=== PATIENT | male | born 1955 | race African-American/Black ===

== ENCOUNTER 2020-02-28 15:24 | Inpatient (IN) | payer OTHER ==
--- OUTSIDE RECORDS SUMMARY | 2020-02-28 15:30 | XMS ---
:[address] [facility] Support Name Relationship Address Phone UE Unavailable Unavailable Unavailable CLIFF SCOTT NIECE [address] [place] [address] cliff dempsey Unavailable Unavailable Unavailable [place], [place] Re-disclosure Warning The records that you are about to access may contain information from federally- assisted alcohol or drug abuse programs. If such information is present, then the following federally mandated warning applies: This information has been disclosed to you from records protected by federal confidentiality rules (42 CFR part 2). The federal rules prohibit you from making any further disclosure of this information unless further disclosure is expressly permitted by the written consent of the person to whom it pertains or as otherwise permitted by 42 CFR part 2. A general authorization for the release of medical or other information is NOT sufficient for this purpose. The Federal rules restrict any use of the information to criminally investigate or prosecute any alcohol or drug abuse patient.The records that you are about to access may contain highly sensitive health information, the redisclosure of which is protected by Article 27-F of the [facility] Public Health law. If you continue you may haveaccess to information: Regarding HIV / AIDS; Provided by facilities licensed or operated by the [facility] Office of Mental Health; or Provided by the [facility] Office for People With Developmental Disabilities. If such information is present, then the following [facility] mandated warning applies: This information has been disclosed to you from confidential records which are protected by state law. State law prohibits you from making any further disclosure of this information without the specific written consent of the person to whom it pertains, or as otherwise permitted by law. Any unauthorized further disclosure in violation of state law may result in a fine or penitentiary sentence or both. A general authorization for the release of medical or other information is NOT sufficient authorization for further disclosure. Encounters Encounter Providers Location Date Indications Data Source(s ) (DentTx) [facility] 04/03/2019 eCW3 ([facility]28 12:00:00 AM [facility] EST - Care) 04/03/2019 12:00:00 AM EST Outpatient [facility] 03/22/2019 eCW3 ([facility] 12:00:00 AM [facility] EST - Care) 03/22/2019 12:00:00 AM EST (DentTx) Dental [facility] 03/20/2019 eCW3 ([facility] 12:00:00 AM [facility] EST - Care) 03/20/2019 12:00:00 AM EST Outpatient [facility] 03/08/2019 eCW3 ([facility] 12:00:00 AM [facility] EDT - Care) 03/08/2019 12:00:00 AM EDT (DentTx) Dental [facility] 03/06/2019 eCW3 ([facility]28 12:00:00 AM [facility] EDT - Care) 03/06/2019 12:00:00 AM EDT Outpatient [facility] 02/22/2019 eCW3 ([facility] 12:00:00 AM [facility] EDT - Care) 02/22/2019 12:00:00 AM EDT (DentTx) Dental [facility] 02/20/2019 eCW3 ([facility] 12:00:00 AM [facility] EDT - Care) 02/20/2019 12:00:00 AM EDT Outpatient [facility] 02/07/2019 eCW3 ([facility] 12:00:00 AM [facility] EDT - Care) 02/07/2019 12:00:00 AM EDT Outpatient [facility] 01/31/2019 eCW3 ([facility] 12:00:00 AM [facility] EDT - Care) 01/31/2019 12:00:00 AM EDT (DentTx) Dental [facility] 01/30/2019 eCW3 ([facility] 12:00:00 AM [facility] EDT - Care) 01/30/2019 12:00:00 AM EDT Outpatient [facility] 01/10/2019 eCW3 ([facility] 12:00:00 AM [facility] EDT - Care) 01/10/2019 12:00:00 AM EDT Immunizations Vaccine Date Status Description Data Source(s) New in 2011. IIV4 02/22/2019 11:08:00 completed eC W3 ([facility]) New in 2011. IIV4 02/22/2019 11:08:00 completed eC W3 ([facility]) New in 2011. IIV4 02/22/2019 11:08:00 completed eC W3 ([facility]) New in 2011. IIV4 02/22/2019 11:08:00 completed eC W3 ([facility]) New in 2011. IIV4 02/22/2019 11:08:00 completed eC W3 ([facility]) New in 2011. IIV4 02/22/2019 11:08:00 completed eC W3 ([facility]) New in 2011. IIV4 02/22/2019 11:08:00 completed eC W3 ([facility]) New in 2011. IIV4 02/22/2019 11:08:00 completed eC W3 ([facility]) New in 2011. IIV4 02/22/2019 11:08:00 completed eC W3 ([facility]) New in 2011. IIV4 02/22/2019 11:08:00 completed eC W3 ([facility]) Medications Medication Brand Start Product Dose Route Administrative Pharmacy [facility] Indications Reaction Description Data Name Date Form Instructions Instructions Source(s) Glucerna - Glucer 03/13/ 300.0 active Glucern a - eCW3 na - 2020 {ml} ([place] 12:00: [place] 00 [facility] EDT Care) Glucerna - Glucer 03/13/ 300.0 active Glucern a - eCW3 na - 2020 {ml} ([place] 12:00: [place] 00 [facility] EDT Care) Glucerna - Glucer 03/13/ 300.0 active Glucern a - eCW3 na - 2020 {ml} ([place] 12:00: [facility] Glucerna - Glucer 03// 300.0 active Glucern a - eCW3 na - 2020 {ml} ([place] 12:[facility]: [facility] 00 [facility] EDT Care) Glucerna - Glucer 03// 300.0 active Glucern a - eCW3 na - 2020 {ml} ([place] 12:[facility]: [facility] 00 [facility] EDT Care) Glucerna - Glucer 03// 300.0 active Glucern a - eCW3 na - 2020 {ml} ([place] 12:00: [facility] 00 [facility] EDT Care) Glucerna - Glucer 03// 300.0 active Glucern a - eCW3 na - 2020 {ml} ([place] 12:00: [facility] 00 [facility] EDT Care) Glucerna - Glucer 03// 300.0 active Glucern a - eCW3 na - 2020 {ml} ([place] 12:00: [facility] 00 [facility] EDT Care) Glucerna - Glucer 03// 300.0 active Glucern a - eCW3 na - 2020 {ml} ([place] 12:00: [facility] 00 [facility] EDT Care) Glucerna - Glucer 03// 300.0 active Glucern a - eCW3 na - 2020 {ml} ([place] 12:00: [facility] 00 [facility] EDT Care) Glucerna - Glucer 03// 300.0 active Glucern a - eCW3 na - 2020 {ml} ([place] 12:00: [facility] 00 [facility] EDT Care) Glucerna - Glucer 03// 300.0 active Glucern a - eCW3 na - 2020 {ml} ([place] 12:00: [facility] 00 [facility] EDT Care) Glucerna - Glucer 03// 300.0 active Glucern a - eCW3 na - 2020 {ml} ([place] 12:00: [facility] 00 [facility] EDT Care) Glucerna - Glucer 03// 300.0 active Glucern a - eCW3 na - 2020 {ml} ([place] 12:00: [facility] 00 [facility] EDT Care) Glucerna - Glucer 03// 300.0 active Glucern a - eCW3 na - 2020 {ml} ([place] 12:00: [facility] 00 [facility] EDT Care) Glucerna - Glucer 03/ 300.0 active Glucern a - eCW3 na - 2020 {ml} ([place] 12:00: [facility] 00 [facility] EDT Care) Glucerna - Glucer 03/ 300.0 active Glucern a - eCW3 na - 2020 {ml} ([place] 12:00: [facility] 00 [facility] EDT Care) Glucerna - Glucer 03/ 300.0 active Glucern a - eCW3 na - 2020 {ml} ([place] 12:00: [facility] 00 [facility] EDT Care) Glucerna - Glucer // 300.0 active Glucern a - eCW3 na - 2020 {ml} ([place] 12:00: [facility] 00 [facility] EDT Care) Glucerna - Glucer 03// 300.0 active Glucern a - eCW3 na - 2020 {ml} ([place] 12:00: [facility] 00 [facility] EDT Care) Glucerna - Glucer 03/ 300.0 active Glucern a - eCW3 na - 2020 {ml} ([place] 12:00: [facility] 00 [facility] EDT Care) Glucerna - Glucer 03// 300.0 active Glucern a - eCW3 na - 2020 {ml} ([place] 12:00: [facility] 00 [facility] EDT Care) Glucerna - Glucer 03/ 300.0 active Glucern a - eCW3 na - 2020 {ml} ([place] 12:00: [facility] 00 [facility] EDT Care) ammonium Ammoni .0 active Ammonium e CW3 lactate 120 um 2020 {appl Lactate 12 % ([place] MG/ML Lactat 12:00: icati [place] Topical e 12 % 00 AM on} Health Cream EST Care) Ammonium Lactate 12 % ammonium Ammoni .0 active Ammonium e CW3 lactate 120 um 2020 {appl Lactate 12 % ([place] MG/ML Lactat 12:00: icati [place] Topical e 12 % 00 AM on} Health Cream EST Care) Ammonium Lactate 12 % ammonium Ammoni .0 active Ammonium e CW3 lactate 120 um 2020 {appl Lactate 12 % ([place] MG/ML Lactat 12:00: icati [place] Topical e 12 % 00 AM on} Health Cream EST Care) Ammonium Lactate 12 % ammonium Ammoni .0 active Ammonium e CW3 lactate 120 um 2020 {appl Lactate 12 % ([place] MG/ML Lactat 12:00: icati [place] Topical e 12 % 00 AM on} Health Cream EST Care) Ammonium Lactate 12 % ammonium Ammoni .0 active Ammonium e CW3 lactate 120 um 2020 {appl Lactate 12 % ([place] MG/ML Lactat 12:00: icati [place] Topical e 12 % 00 AM on} Health Cream EST Care) Ammonium Lactate 12 % ammonium Ammoni .0 active Ammonium e CW3 lactate 120 um 2020 {appl Lactate 12 % ([place] MG/ML Lactat 12:00: icati [place] Topical e 12 % 00 AM on} Health Cream EST Care) Ammonium Lactate 12 % ammonium Ammoni .0 active Ammonium e CW3 lactate 120 um 2020 {appl Lactate 12 % ([place] MG/ML Lactat 12:00: icati [place] Topical e 12 % 00 AM on} Health Cream EST Care) Ammonium Lactate 12 % Ibuprofen Ibupro 05/25/ active Ibuprofen eCW3 400 MG Oral fen 2020 400 MG ([place] [facility] Tablet 400 MG 12:00: [place] 00 AM [facility] EST Care) Ibuprofen Ibupro 05/25/ active Ibuprofen eCW3 400 MG Oral fen 2020 400 MG ([place] [facility] Tablet 400 MG 12:00: [place] 00 AM [facility] EST Care) Ibuprofen Ibupro 05/25/ active Ibuprofen eCW3 400 MG Oral fen 2020 400 MG ([place] [facility] Tablet 400 MG 12:00: [facility] 00 AM [facility] EST Care) Ibuprofen Ibupro 05/25/ active Ibuprofen eCW3 400 MG Oral fen 2020 400 MG ([place] [facility] Tablet 400 MG 12:00: [facility] 00 AM [facility] EST Care) Ibuprofen Ibupro 05/25/ active Ibuprofen eCW3 400 MG Oral fen 2020 400 MG ([place] [facility] Tablet 400 MG 12:00: [facility] 00 AM [facility] EST Care) Ibuprofen Ibupro 05/25/ active Ibuprofen eCW3 400 MG Oral fen 2020 400 MG ([place] [facility] Tablet 400 MG 12:00: [facility] 00 AM [facility] EST Care) Ibuprofen Ibupro 05/25/ active Ibuprofen eCW3 400 MG Oral fen 2020 400 MG ([place] [facility] Tablet 400 MG 12:00: [facility]) Ibuprofen Ibupro 05/25/ active Ibuprofen eCW3 400 MG Oral fen 2020 400 MG ([place] Tablet 400 MG 12:00: [facility]) Ibuprofen Ibupro 05/25/ active Ibuprofen eCW3 400 MG Oral fen 2020 400 MG ([place] Tablet 400 MG 12:00: [facility]) Ibuprofen Ibupro 05/25/ active Ibuprofen eCW3 400 MG Oral fen 2020 400 MG ([place] [facility] Tablet 400 MG 12:00: [facility]) Ibuprofen Ibupro 05/25/ active Ibuprofen eCW3 400 MG Oral fen 2020 400 MG ([place] Tablet 400 MG 12:: [facility]) Ibuprofen Ibupro 05/25/ active Ibuprofen eCW3 400 MG Oral fen 2020 400 MG ([place] [facility] Tablet 400 MG 12:00: [facility]) Ibuprofen Ibupro 05/25/ active Ibuprofen eCW3 400 MG Oral fen 2020 400 MG ([place] Tablet 400 MG 12:: [facility]) Ibuprofen Ibupro 05/25/ active Ibuprofen eCW3 400 MG Oral fen 2020 400 MG ([place] [facility] Tablet 400 MG 12:00: [facility]) Ibuprofen Ibupro 05/25/ active Ibuprofen eCW3 400 MG Oral fen 2020 400 MG ([place] [facility] Tablet 400 MG 12:00: [facility]) Ibuprofen Ibupro 05/25/ active Ibuprofen eCW3 400 MG Oral fen 2020 400 MG ([place] [facility] Tablet 400 MG 12:00: [facility]) Ibuprofen Ibupro 05/25/ active Ibuprofen eCW3 400 MG Oral fen 2020 400 MG ([place] [facility] Tablet 400 MG 12:00: [facility]) Ibuprofen Ibupro 05/25/ active Ibuprofen eCW3 400 MG Oral fen 2020 400 MG ([place] [facility] Tablet 400 MG 12:00: [facility]) Ibuprofen Ibupro 05/25/ active Ibuprofen eCW3 400 MG Oral fen 2020 400 MG ([place] Tablet 400 MG 12:00: [facility]) Ibuprofen Ibupro 05/25/ active Ibuprofen eCW3 400 MG Oral fen 2020 400 MG ([place] [facility] Tablet 400 MG 12:00: [facility] EST Care) Ibuprofen Ibupro 05/25/ active Ibuprofen eCW3 400 MG Oral fen 2020 400 MG ([place] Tablet 400 MG 12:00: [place] 00 AM [facility] EST Care) Ibuprofen Ibupro 05/25/ active Ibuprofen eCW3 400 MG Oral fen 2020 400 MG ([place] Tablet 400 MG 12:00: [facility] 00 AM [facility] EST Care) Ibuprofen Ibupro 05/25/ active Ibuprofen eCW3 400 MG Oral fen 2020 400 MG ([place] [facility] Tablet 400 MG 12:00: [facility] 00 AM [facility] EST Care) 3 ML Lantus 23/ active Lantus eCW3 Insulin SoloSt 2019 SoloStar 100 ([facility] [place] [facility] 100 12:00: UNIT/ML [facility] 100 UNT/ML UNIT/M 00 AM Health Pen L EST Care) Injector [Lantus] Lantus SoloStar 100 UNIT/ML 3 ML Lantus 05/07/ active Lantus eCW3 Insulin SoloSt 2018 SoloStar 100 ([facility] [place] 100 12:00: UNIT/ML [facility] [facility] 100 UNT/ML UNIT/M 00 AM Health Pen L EST Care) Injector [Lantus] Lantus SoloStar 100 UNIT/ML 3 ML Lantus 05/07/ active Lantus eCW3 Insulin SoloSt 2019 SoloStar 100 ([facility] [place] 100 12:00: UNIT/ML [place] [facility] 100 UNT/ML UNIT/M 00 AM Health Pen L EST Care) Injector [Lantus] Lantus SoloStar 100 UNIT/ML 3 ML Lantus 05/07/ active Lantus eCW3 Insulin SoloSt 2018 SoloStar 100 ([facility] [place] 100 12:00: UNIT/ML [place] [facility] 100 UNT/ML UNIT/M 00 AM Health Pen L EST Care) Injector [Lantus] Lantus SoloStar 100 UNIT/ML 3 ML Lantus 05/07/ active Lantus eCW3 Insulin SoloSt 2019 SoloStar 100 ([facility] [place] 100 12:00: UNIT/ML [place] [facility] 100 UNT/ML UNIT/M 00 AM Health Pen L EST Care) Injector [Lantus] Lantus SoloStar 100 UNIT/ML 3 ML Lantus 05/07/ active Lantus eCW3 Insulin SoloSt 2019 SoloStar 100 ([facility] [place] 100 12:00: UNIT/ML [place] [facility] 100 UNT/ML UNIT/M 00 AM Health Pen L EST Care) Injector [Lantus] Lantus SoloStar 100 UNIT/ML 3 ML Lantus 05/07/ active Lantus eCW3 Insulin SoloSt 2019 SoloStar 100 ([facility] [place] 100 12:00: UNIT/ML [place] [facility] 100 UNT/ML UNIT/M 00 AM Health Pen L EST Care) Injector [Lantus] Lantus SoloStar 100 UNIT/ML 3 ML Lantus 05/07/ active Lantus eCW3 Insulin SoloSt 2019 SoloStar 100 ([facility] [place] [facility] 100 12:00: UNIT/ML [place] [facility] 100 UNT/ML UNIT/M 00 AM Health Pen L EST Care) Injector [Lantus] Lantus SoloStar 100 UNIT/ML 3 ML Lantus 05/07/ active Lantus eCW3 Insulin SoloSt 2019 SoloStar 100 ([facility] [place] [facility] 100 12:00: UNIT/ML [place] [facility] 100 UNT/ML UNIT/M 00 AM Health Pen L EST Care) Injector [Lantus] Lantus SoloStar 100 UNIT/ML 3 ML Lantus 05/07/ active Lantus eCW3 Insulin SoloSt 2019 SoloStar 100 ([facility] [place] [facility] 100 12:00: UNIT/ML [facility] [facility] 100 UNT/ML UNIT/M 00 AM Health Pen L EST Care) Injector [Lantus] Lantus SoloStar 100 UNIT/ML 3 ML Lantus 05/07/ active Lantus eCW3 Insulin SoloSt 2019 SoloStar 100 ([facility] [place] [facility] 100 12:00: UNIT/ML [place] [facility] 100 UNT/ML UNIT/M 00 AM Health Pen L EST Care) Injector [Lantus] Lantus SoloStar 100 UNIT/ML 3 ML Lantus 05/07/ active Lantus eCW3 Insulin SoloSt 2019 SoloStar 100 ([facility] [place] [facility] 100 12:00: UNIT/ML [place] [facility] 100 UNT/ML UNIT/M 00 AM Health Pen L EST Care) Injector [Lantus] Lantus SoloStar 100 UNIT/ML 3 ML Lantus 05/07/ active Lantus eCW3 Insulin SoloSt 2019 SoloStar 100 ([facility] [place] [facility] 100 12:00: UNIT/ML [place] [facility] 100 UNT/ML UNIT/M 00 AM Health Pen L EST Care) Injector [Lantus] Lantus SoloStar 100 UNIT/ML 3 ML Lantus 05/07/ active Lantus eCW3 Insulin SoloSt 2019 SoloStar 100 ([facility] [place] [facility] 100 12:00: UNIT/ML [facility] [facility] 100 UNT/ML UNIT/M 00 AM Health Pen L EST Care) Injector [Lantus] Lantus SoloStar 100 UNIT/ML 3 ML Lantus 05/07/ active Lantus eCW3 Insulin SoloSt 2019 SoloStar 100 ([facility] [place] [facility] 100 12:00: UNIT/ML [place] [facility] 100 UNT/ML UNIT/M 00 AM Health Pen L EST Care) Injector [Lantus] Lantus SoloStar 100 UNIT/ML 3 ML Lantus 05/07/ active Lantus eCW3 Insulin SoloSt 2019 SoloStar 100 ([facility] [place] [facility] 100 12:00: UNIT/ML [place] [facility] 100 UNT/ML UNIT/M 00 AM Health Pen L EST Care) Injector [Lantus] Lantus SoloStar 100 UNIT/ML 3 ML Lantus 05/07/ active Lantus eCW3 Insulin SoloSt 2019 SoloStar 100 ([facility] [place] [facility] 100 12:00: UNIT/ML [place] [facility] 100 UNT/ML UNIT/M 00 AM Health Pen L EST Care) Injector [Lantus] Lantus SoloStar 100 UNIT/ML 3 ML Lantus 05/07/ active Lantus eCW3 Insulin SoloSt 2019 SoloStar 100 ([facility] [place] 100 12:00: UNIT/ML [place] [facility] 100 UNT/ML UNIT/M 00 AM Health Pen L EST Care) Injector [Lantus] Lantus SoloStar 100 UNIT/ML 3 ML Lantus 05/07/ active Lantus eCW3 Insulin SoloSt 2019 SoloStar 100 ([facility] [place] [facility] 100 12:00: UNIT/ML [place] [facility] 100 UNT/ML UNIT/M 00 AM Health Pen L EST Care) Injector [Lantus] Lantus SoloStar 100 UNIT/ML 3 ML Lantus 05/07/ active Lantus eCW3 Insulin SoloSt 2019 SoloStar 100 ([facility] [place] [facility] 100 12:00: UNIT/ML [place] [facility] 100 UNT/ML UNIT/M 00 AM Health Pen L EST Care) Injector [Lantus] Lantus SoloStar 100 UNIT/ML 3 ML Lantus 05/07/ active Lantus eCW3 Insulin SoloSt 2019 SoloStar 100 ([facility] [place] [facility] 100 12:00: UNIT/ML [place] [facility] 100 UNT/ML UNIT/M 00 AM Health Pen L EST Care) Injector [Lantus] Lantus SoloStar 100 UNIT/ML 3 ML Lantus 05/07/ active Lantus eCW3 Insulin SoloSt 2018 SoloStar 100 ([facility] [place] [facility] 100 12:00: UNIT/ML [place] [facility] 100 UNT/ML UNIT/M 00 AM Health Pen L EST Care) Injector [Lantus] Lantus SoloStar 100 UNIT/ML 3 ML Lantus 05/07/ active Lantus eCW3 Insulin SoloSt 2018 SoloStar 100 ([facility] [place] [facility] 100 12:00: UNIT/ML [facility] [facility] 100 UNT/ML UNIT/M 00 AM Health Pen L EST Care) Injector [Lantus] Lantus SoloStar 100 UNIT/ML SYMTUZA SYMTUZ .0 active SYMTUZA eCW 3 800-150-200 A 2018 {tabl [phone]- ([place] -10 MG 800-15 12:00: et_wi 10 MG [place] 0-200- 00 AM th_fo Health 10 MG EST od} Care) SYMTUZA SYMTUZ .0 active SYMTUZA eCW 3 800-150-200 A 2018 {tabl [phone]- ([place] -10 MG 800-15 12:00: et_wi 10 MG [place] 0-200- 00 AM th_fo Health 10 MG EST od} Care) SYMTUZA SYMTUZ .0 active SYMTUZA eCW 3 800-150-200 A 2019 {tabl [phone]- ([place] -10 MG 800-15 12:00: et_wi 10 MG [place] 0-200- 00 AM th_fo Health 10 MG EST od} Care) SYMTUZA SYMTUZ .0 active SYMTUZA eCW 3 800-150-200 A 2019 {tabl [phone]- ([place] -10 MG 800-15 12:00: et_wi 10 MG [place] 0-200- 00 AM th_fo Health 10 MG EST od} Care) SYMTUZA SYMTUZ .0 active SYMTUZA eCW 3 800-150-200 A 2019 {tabl [phone]- ([place] -10 MG 800-15 12:00: et_wi 10 MG [place] 0-200- 00 AM th_fo Health 10 MG EST od} Care) SYMTUZA SYMTUZ .0 active SYMTUZA eCW 3 800-150-200 A 2019 {tabl [phone]- ([place] -10 MG 800-15 12:00: et_wi 10 MG [place] 0-200- 00 AM th_fo Health 10 MG EST od} Care) SYMTUZA SYMTUZ .0 active SYMTUZA eCW 3 800-150-200 A 2019 {tabl [phone]- ([place] -10 MG 800-15 12:00: et_wi 10 MG [place] 0-200- 00 AM th_fo Health 10 MG EST od} Care) SYMTUZA SYMTUZ .0 active SYMTUZA eCW 3 800-150-200 A 2019 {tabl [phone]- ([place] -10 MG 800-15 12:00: et_wi 10 MG [place] 0-200- 00 AM th_fo Health 10 MG EST od} Care) SYMTUZA SYMTUZ .0 active SYMTUZA eCW 3 800-150-200 A 2019 {tabl [phone]- ([place] -10 MG 800-15 12:00: et_wi 10 MG [place] 0-200- 00 AM th_fo Health 10 MG EST od} Care) SYMTUZA SYMTUZ .0 active SYMTUZA eCW 3 800-150-200 A 2019 {tabl [phone]- ([place] -10 MG 800-15 12:00: et_wi 10 MG [place] 0-200- 00 AM th_fo Health 10 MG EST od} Care) SYMTUZA SYMTUZ .0 active SYMTUZA eCW 3 800-150-200 A 2019 {tabl [phone]- ([place] -10 MG 800-15 12:00: et_wi 10 MG [place] 0-200- 00 AM th_fo Health 10 MG EST od} Care) SYMTUZA SYMTUZ .0 active SYMTUZA eCW 3 800-150-200 A 2019 {tabl [phone]- ([place] -10 MG 800-15 12:00: et_wi 10 MG [place] 0-200- 00 AM th_fo Health 10 MG EST od} Care) SYMTUZA SYMTUZ .0 active SYMTUZA eCW 3 800-150-200 A 2019 {tabl [phone]- ([place] -10 MG 800-15 12:00: et_wi 10 MG [place] 0-200- 00 AM th_fo Health 10 MG EST od} Care) SYMTUZA SYMTUZ .0 active SYMTUZA eCW 3 800-150-200 A 2019 {tabl [phone]- ([place] -10 MG 800-15 12:00: et_wi 10 MG [place] 0-200- 00 AM th_fo Health 10 MG EST od} Care) SYMTUZA SYMTUZ .0 active SYMTUZA eCW 3 800-150-200 A 2019 {tabl [phone]- ([place] -10 MG 800-15 12:00: et_wi 10 MG [place] 0-200- 00 AM th_fo Health 10 MG EST od} Care) SYMTUZA SYMTUZ .0 active SYMTUZA eCW 3 800-150-200 A 2019 {tabl [phone]- ([place] -10 MG 800-15 12:00: et_wi 10 MG [place] 0-200- 00 AM th_fo Health 10 MG EST od} Care) SYMTUZA SYMTUZ .0 active SYMTUZA eCW 3 800-150-200 A 2019 {tabl [phone]- ([place] -10 MG 800-15 12:00: et_wi 10 MG [place] 0-200- 00 AM th_fo Health 10 MG EST od} Care) SYMTUZA SYMTUZ .0 active SYMTUZA eCW 3 800-150-200 A 2019 {tabl [phone]- ([place] -10 MG 800-15 12:00: et_wi 10 MG [place] 0-200- 00 AM th_fo Health 10 MG EST od} Care) SYMTUZA SYMTUZ .0 active SYMTUZA eCW 3 800-150-200 A 2019 {tabl [phone]- ([place] -10 MG 800-15 12:00: et_wi 10 MG [place] 0-200- 00 AM th_fo Health 10 MG EST od} Care) SYMTUZA SYMTUZ .0 active SYMTUZA eCW 3 800-150-200 A 2019 {tabl [phone]- ([place] -10 MG 800-15 12:00: et_wi 10 MG [place] 0-200- 00 AM th_fo Health 10 MG EST od} Care) SYMTUZA SYMTUZ .0 active SYMTUZA eCW 3 800-150-200 A 2019 {tabl [phone]- ([place] -10 MG 800-15 12:00: et_wi 10 MG [place] 0-200- 00 AM th_fo Health 10 MG EST od} Care) SYMTUZA SYMTUZ .0 active SYMTUZA eCW 3 800-150-200 A 2019 {tabl [phone]- ([place] -10 MG 800-15 12:00: et_wi 10 MG [place] 0-200- 00 AM th_fo Health 10 MG EST od} Care) SYMTUZA SYMTUZ .0 active SYMTUZA eCW 3 800-150-200 A 2019 {tabl [phone]- ([place] -10 MG 800-15 12:00: et_wi 10 MG [place] 0-200- 00 AM th_ Health 10 MG EST od} Care) Aspirin 81 Aspiri .0 active Aspirin 81 eCW3 MG Delayed n 81 2019 {tabl 81 MG ([place] Release 81 MG 12:00: et} [place] Oral Tablet 00 AM Health Aspirin 81 EDT Care) 81 MG Aspirin 81 Aspiri .0 active Aspirin 81 eCW3 MG Delayed n 81 2019 {tabl 81 MG ([place] Release 81 MG 12:00: et} [facility] Oral Tablet 00 AM Health Aspirin 81 EDT Care) 81 MG Aspirin 81 Aspiri .0 active Aspirin 81 eCW3 MG Delayed n 81 2019 {tabl 81 MG ([place] Release 81 MG 12:00: et} [facility] Oral Tablet 00 AM Health Aspirin 81 EDT Care) 81 MG Aspirin 81 i .0 active Aspirin 81 eCW3 MG Delayed n 81 2019 {tabl 81 MG ([place] Release 81 MG 12:00: et} [place] Oral Tablet 00 AM Health Aspirin 81 EDT Care) 81 MG Aspirin 81 i .0 active Aspirin 81 eCW3 MG Delayed n 81 2019 {tabl 81 MG ([place] Release 81 MG 12:00: et} [place] Oral Tablet 00 AM Health Aspirin 81 EDT Care) 81 MG Aspirin 81 Aspiri .0 active Aspirin 81 eCW3 MG Delayed n 81 2019 {tabl 81 MG ([place] Release 81 MG 12:00: et} [facility] Oral Tablet 00 AM Health Aspirin 81 EDT Care) 81 MG Aspirin 81 Aspiri .0 active Aspirin 81 eCW3 MG Delayed n 81 2019 {tabl 81 MG ([place] Release 81 MG 12:00: et} [facility] Oral Tablet 00 AM Health Aspirin 81 EDT Care) 81 MG Aspirin 81 Aspiri .0 active Aspirin 81 eCW3 MG Delayed n 81 2019 {tabl 81 MG ([place] Release 81 MG 12:00: et} [facility] Oral Tablet 00 AM Health Aspirin 81 EDT Care) 81 MG Aspirin 81 Aspiri .0 active Aspirin 81 eCW3 MG Delayed n 81 2019 {tabl 81 MG ([place] Release 81 MG 12:00: et} [facility] Oral Tablet 00 AM Health Aspirin 81 EDT Care) 81 MG Aspirin 81 Aspiri .0 active Aspirin 81 eCW3 MG Delayed n 81 2019 {tabl 81 MG ([place] Release 81 MG 12:00: et} [facility] Oral Tablet 00 AM Health Aspirin 81 EDT Care) 81 MG Aspirin 81 Aspiri .0 active Aspirin 81 eCW3 MG Delayed n 81 2019 {tabl 81 MG ([place] Release 81 MG 12:00: et} [facility] Oral Tablet 00 AM Health Aspirin 81 EDT Care) 81 MG Aspirin 81 Aspiri .0 active Aspirin 81 eCW3 MG Delayed n 81 2019 {tabl 81 MG ([place] Release 81 MG 12:00: et} [facility] Oral Tablet 00 AM Health Aspirin 81 EDT Care) 81 MG Aspirin 81 Aspiri .0 active Aspirin 81 eCW3 MG Delayed n 81 2019 {tabl 81 MG ([place] Release 81 MG 12:00: et} [facility] Tablet 00 AM Health Aspirin 81 EDT Care) 81 MG Aspirin 81 Aspiri .0 active Aspirin 81 eCW3 MG Delayed n 81 2019 {tabl 81 MG ([place] Release 81 MG 12:00: et} [facility] Tablet 00 AM Health Aspirin 81 EDT Care) 81 MG Aspirin 81 Aspiri .0 active Aspirin 81 eCW3 MG Delayed n 81 2019 {tabl 81 MG ([place] Release 81 MG 12:00: et} [facility] Tablet 00 AM Health Aspirin 81 EDT Care) 81 MG Aspirin 81 Aspiri .0 active Aspirin 81 eCW3 MG Delayed n 81 2019 {tabl 81 MG ([place] Release 81 MG 12:00: et} [facility] Tablet 00 AM Health Aspirin 81 EDT Care) 81 MG Aspirin 81 Aspiri .0 active Aspirin 81 eCW3 MG Delayed n 81 2019 {tabl 81 MG ([place] Release 81 MG 12:00: et} [facility] Tablet 00 [facility] Aspirin 81 EDT Care) 81 MG Aspirin 81 Aspiri .0 active Aspirin 81 eCW3 MG Delayed n 81 2019 {tabl 81 MG ([place] Release 81 MG 12:00: et} [facility] Oral Tablet 00 AM [facility] Aspirin 81 EDT Care) 81 MG Glucerna - Glucer 300.0 active Glucern a - eCW3 na - 2019 {ml} ([place] 12:00: [facility] 00 AM [facility] EDT Care) Aspirin 81 Aspiri .0 active Aspirin 81 eCW3 MG Delayed n 81 2019 {tabl 81 MG ([place] Release 81 MG 12:00: et} [facility] Oral Tablet 00 AM [facility] Aspirin 81 EDT Care) 81 MG Aspirin 81 Aspiri .0 active Aspirin 81 eCW3 MG Delayed n 81 2019 {tabl 81 MG ([place] Release 81 MG 12:00: et} [facility] Oral Tablet 00 AM [facility] Aspirin 81 EDT Care) 81 MG Aspirin 81 Aspiri .0 active Aspirin 81 eCW3 MG Delayed n 81 2019 {tabl 81 MG ([place] Release 81 MG 12:00: et} [facility] Oral Tablet 00 AM [facility] Aspirin 81 EDT Care) 81 MG Aspirin 81 Aspiri .0 active Aspirin 81 eCW3 MG Delayed n 81 2019 {tabl 81 MG ([place] Release 81 MG 12:00: et} [facility] Oral Tablet 00 AM [facility] Aspirin 81 EDT Care) 81 MG Aspirin 81 Aspiri .0 active Aspirin 81 eCW3 MG Delayed n 81 2019 {tabl 81 MG ([place] Release 81 MG 12:00: et} [facility] Oral Tablet 00 AM [facility] Aspirin 81 EDT Care) 81 MG Aspirin 81 Aspiri .0 active Aspirin 81 eCW3 MG Delayed n 81 2019 {tabl 81 MG ([place] Release 81 MG 12:00: et} [facility] Oral Tablet 00 AM [facility] Aspirin 81 EDT Care) 81 MG Sulfamethox Bactri .0 active Bactrim DS eCW3 azole 800 m DS 2019 {tabl 800-160 MG ([facility] MG / 800-16 12:00: et} [facility] Trimethopri 0 MG 00 AM [facility] m 160 MG EDT Care) Oral Tablet [Bactrim] Bactrim DS 800-160 MG Sulfamethox Bactri .0 active Bactrim DS eCW3 azole 800 m DS 2019 {tabl 800-160 MG ([facility] MG / 800-16 12:00: et} [facility] Trimethopri 0 MG 00 AM Health m 160 MG EDT Care) Oral Tablet [Bactrim] Bactrim DS 800-160 MG Sulfamethox Bactri .0 active Bactrim DS eCW3 azole 800 m DS 2019 {tabl 800-160 MG ([facility] MG / 800-16 12:00: et} [facility] Trimethopri 0 MG 00 AM [facility] m 160 MG EDT Care) Oral Tablet [Bactrim] Bactrim DS 800-160 MG Sulfamethox Bactri .0 active Bactrim DS eCW3 azole 800 m DS 2019 {tabl 800-160 MG ([facility] MG / 800-16 12:00: et} [facility] Trimethopri 0 MG 00 AM Health m 160 MG EDT Care) Oral Tablet [Bactrim] Bactrim DS 800-160 MG Sulfamethox Bactri .0 active Bactrim DS eCW3 azole 800 m DS 2019 {tabl 800-160 MG ([facility] MG / 800-16 12:00: et} [facility] Trimethopri 0 MG 00 AM [facility] m 160 MG EDT Care) Oral Tablet [Bactrim] Bactrim DS 800-160 MG Sulfamethox Bactri .0 active Bactrim DS eCW3 azole 800 m DS 2019 {tabl 800-160 MG ([facility] MG / 800-16 12:00: et} [facility] Trimethopri 0 MG 00 AM [facility] m 160 MG EDT Care) Oral Tablet [Bactrim] Bactrim DS 800-160 MG Sulfamethox Bactri .0 active Bactrim DS eCW3 azole 800 m DS 2019 {tabl 800-160 MG ([facility] MG / 800-16 12:00: et} [facility] Trimethopri 0 MG 00 AM [facility] m 160 MG EDT Care) Oral Tablet [Bactrim] Bactrim DS 800-160 MG Sulfamethox Bactri .0 active Bactrim DS eCW3 azole 800 m DS 2019 {tabl 800-160 MG ([facility] MG / 800-16 12:00: et} [facility] Trimethopri 0 MG 00 AM [facility] m 160 MG EDT Care) Oral Tablet [Bactrim] Bactrim DS 800-160 MG Sulfamethox Bactri 1.0 active Bactrim DS eCW3 azole 800 m DS 2019 {tabl 800-160 MG ([facility] MG / 800-16 12:00: et} [facility] Trimethopri 0 MG 00 AM [facility] m 160 MG EDT Care) Oral Tablet [Bactrim] Bactrim DS 800-160 MG Sulfamethox Bactri .0 active Bactrim DS eCW3 azole 800 m DS 2019 {tabl 800-160 MG ([facility] MG / 800-16 12:00: et} [facility] Trimethopri 0 MG 00 AM [facility] m 160 MG EDT Care) Oral Tablet [Bactrim] Bactrim DS 800-160 MG Sulfamethox Bactri .0 active Bactrim DS eCW3 azole 800 m DS 2019 {tabl 800-160 MG ([facility] MG / 800-16 12:00: et} [facility] Trimethopri 0 MG 00 AM [facility] m 160 MG EDT Care) Oral Tablet [Bactrim] Bactrim DS 800-160 MG Sulfamethox Bactri .0 active Bactrim DS eCW3 azole 800 m DS 2019 {tabl 800-160 MG ([facility] MG / 800-16 12:00: et} [facility] Trimethopri 0 MG 00 AM [facility] m 160 MG EDT Care) Oral Tablet [Bactrim] Bactrim DS 800-160 MG Sulfamethox Bactri .0 active Bactrim DS eCW3 azole 800 m DS 2019 {tabl 800-160 MG ([facility] MG / 800-16 12:00: et} [facility] Trimethopri 0 MG 00 AM [facility] m 160 MG EDT Care) Oral Tablet [Bactrim] Bactrim DS 800-160 MG Sulfamethox Bactri .0 active Bactrim DS eCW3 azole 800 m DS 2019 {tabl 800-160 MG ([facility] MG / 800-16 12:00: et} [facility] Trimethopri 0 MG 00 AM [facility] m 160 MG EDT Care) Oral Tablet [Bactrim] Bactrim DS 800-160 MG Sulfamethox Bactri .0 active Bactrim DS eCW3 azole 800 m DS 2019 {tabl 800-160 MG ([facility] MG / 800-16 12:00: et} [facility] Trimethopri 0 MG 00 AM [facility] m 160 MG EDT Care) Oral Tablet [Bactrim] Bactrim DS 800-160 MG Sulfamethox Bactri .0 active Bactrim DS eCW3 azole 800 m DS 2019 {tabl 800-160 MG ([facility] MG / 800-16 12:00: et} [facility] Trimethopri 0 MG 00 AM [facility] m 160 MG EDT Care) Oral Tablet [Bactrim] Bactrim DS 800-160 MG Sulfamethox Bactri .0 active Bactrim DS eCW3 azole 800 m DS 2019 {tabl 800-160 MG ([facility] MG / 800-16 12:00: et} [facility] Trimethopri 0 MG 00 AM [facility] m 160 MG EDT Care) Oral Tablet [Bactrim] Bactrim DS 800-160 MG Sulfamethox Bactri .0 active Bactrim DS eCW3 azole 800 m DS 2019 {tabl 800-160 MG ([facility] MG / 800-16 12:00: et} [facility] Trimethopri 0 MG 00 AM [facility] m 160 MG EDT Care) Oral Tablet [Bactrim] Bactrim DS 800-160 MG Sulfamethox Bactri .0 active Bactrim DS eCW3 azole 800 m DS 2019 {tabl 800-160 MG ([facility] MG / 800-16 12:00: et} [facility] Trimethopri 0 MG 00 AM [facility] m 160 MG EDT Care) Oral Tablet [Bactrim] Bactrim DS 800-160 MG Sulfamethox Bactri .0 active Bactrim DS eCW3 azole 800 m DS 2019 {tabl 800-160 MG ([facility] MG / 800-16 12:00: et} [facility] Trimethopri 0 MG 00 AM [facility] m 160 MG EDT Care) Oral Tablet [Bactrim] Bactrim DS 800-160 MG Sulfamethox Bactri .0 active Bactrim DS eCW3 azole 800 m DS 2019 {tabl 800-160 MG ([facility] MG / 800-16 12:00: et} [facility] Trimethopri 0 MG 00 AM [facility] m 160 MG EDT Care) Oral Tablet [Bactrim] Bactrim DS 800-160 MG Sulfamethox Bactri 1.0 active Bactrim DS eCW3 azole 800 m DS 2019 {tabl 800-160 MG ([facility] MG / 800-16 12:00: et} [facility] Trimethopri 0 MG 00 AM [facility] m 160 MG EDT Care) Oral Tablet [Bactrim] Bactrim DS 800-160 MG Sulfamethox Bactri 1.0 active Bactrim DS eCW3 azole 800 m DS 2019 {tabl 800-160 MG ([facility] MG / 800-16 12:00: et} [facility] Trimethopri 0 MG 00 AM [facility] m 160 MG EDT Care) Oral Tablet [Bactrim] Bactrim DS 800-160 MG Sulfamethox Bactri .0 active Bactrim DS eCW3 azole 800 m DS 2019 {tabl 800-160 MG ([facility] MG / 800-16 12:00: et} [facility] Trimethopri 0 MG 00 AM [facility] m 160 MG EDT Care) Oral Tablet [Bactrim] Bactrim DS 800-160 MG GLUCOMETER UNK 02/01/ suspend GLUCOMETE R eCW3 NA 2019 ed NA ([facility] 12:00: [facility] 00 AM [facility] EDT Care) GLUCOMETER UNK 02/01/ active GLUCOMETER eCW3 NA 2018 NA ([place] 12:00: [facility] 00 AM [facility] EDT Care) GLUCOMETER UNK 02/01/ suspend GLUCOMETE R eCW3 NA 2019 ed NA ([place] 12:00: [facility] 00 AM [facility] EDT Care) GLUCOMETER UNK 02/01/ active GLUCOMETER eCW3 NA 2018 NA ([place] 12:00: [facility] 00 AM [facility] EDT Care) GLUCOMETER UNK 02/01/ active GLUCOMETER eCW3 NA 2018 NA ([place] 12:00: [facility] 00 AM [facility] EDT Care) GLUCOMETER UNK 02/01/ active GLUCOMETER eCW3 NA 2018 NA ([place] 12:00: [facility] 00 AM [facility] EDT Care) GLUCOMETER UNK 02/01/ active GLUCOMETER eCW3 NA 2018 NA ([place] 12:00: [facility] 00 AM [facility] EDT Care) GLUCOMETER UNK 02/01/ active GLUCOMETER eCW3 NA 2019 NA ([place] 12:00: [facility] 00 AM [facility] EDT Care) GLUCOMETER UNK 02/01/ active GLUCOMETER eCW3 NA 2019 NA ([place] 12:00: [facility] 00 AM [facility] EDT Care) GLUCOMETER UNK 02/01/ active GLUCOMETER eCW3 NA 2019 NA ([place] 12:00: [facility] 00 AM [facility] EDT Care) GLUCOMETER UNK 02/01/ active GLUCOMETER eCW3 NA 2019 NA ([place] 12:00: [facility] 00 AM [facility] EDT Care) GLUCOMETER UNK 02/01/ active GLUCOMETER eCW3 NA 2019 NA ([place] 12:00: [facility] 00 AM [facility] EDT Care) GLUCOMETER UNK 02/01/ suspend GLUCOMETE R eCW3 NA 2019 ed NA ([place] 12:00: [facility] 00 AM [facility] EDT Care) GLUCOMETER UNK 02/01/ active GLUCOMETER eCW3 NA 2019 NA ([place] 12:00: [facility] 00 AM [facility] EDT Care) GLUCOMETER UNK 02/01/ active GLUCOMETER eCW3 NA 2019 NA ([place] 12:00: [facility] 00 AM [facility] EDT Care) GLUCOMETER UNK 02/01/ active GLUCOMETER eCW3 NA 2019 NA ([place] 12:00: [facility] 00 AM [facility] EDT Care) GLUCOMETER UNK 02/01/ active GLUCOMETER eCW3 NA 2019 NA ([place] 12:00: [facility] 00 AM [facility] EDT Care) GLUCOMETER UNK 02/01/ active GLUCOMETER eCW3 NA 2019 NA ([place] 12:00: [facility] 00 AM [facility] EDT Care) GLUCOMETER UNK 02/01/ active GLUCOMETER eCW3 NA 2019 NA ([place] 12:00: [facility] 00 AM [facility] EDT Care) GLUCOMETER UNK 02/01/ suspend GLUCOMETE R eCW3 NA 2019 ed NA ([place] 12:00: [facility] 00 AM [facility] EDT Care) GLUCOMETER UNK 02/01/ active GLUCOMETER eCW3 NA 2019 NA ([place] 12:00: [facility] 00 AM [facility] EDT Care) GLUCOMETER UNK 02/01/ active GLUCOMETER eCW3 NA 2019 NA ([place] 12:00: [facility] 00 AM [facility] EDT Care) GLUCOMETER UNK 02/01/ active GLUCOMETER eCW3 NA 2019 NA ([place] 12:00: [facility] 00 AM [facility] EDT Care) GLUCOMETER UNK 02/01/ active GLUCOMETER eCW3 NA 2019 NA ([place] 12:00: [facility] 00 AM [facility] EDT Care) Accu-Chek UNK 01/31/ active Accu-Chek e CW3 Soft Touch 2019 Soft Touch ([facility] Lancets - 12:00: Lancets - [place] 00 AM [facility] EDT Care) Alcohol UNK 01/31/ active Alcohol Prep eCW3 Prep Pads 2019 Pads 70 % ([place] 70 % 12:00: [facility] 00 AM [facility] EDT Care) Alcohol UNK 01/31/ active Alcohol Prep eCW3 Prep Pads 2019 Pads 70 % ([place] 70 % 12:00: [facility] 00 AM [facility] EDT Care) Lancet Lancet 01/31/ active Lancet eCW3 Device - Device 2019 Device - ([place] - 12:00: [facility] 00 AM [facility] EDT Care) Alcohol UNK 01/31/ active Alcohol Prep eCW3 Prep Pads 2019 Pads 70 % ([place] 70 % 12:00: [facility] 00 AM [facility] EDT Care) Glucose UNK 01/31/ active Glucose Test eCW3 Test Strips 2019 Strips ([place] [facility] Compatiable 12:00: Compatiable [facility] with 00 AM with Health Patients EDT Patients Care) Machine Machine Easy Touch Easy 01/31/ active Easy Touch eCW3 Safety Pen Touch 2019 Safety Pen ([facility] [place] 29G Safety 12:00: [place] 2 9G [facility] X 5MM Pen 00 AM X 5MM Health Needle EDT Care) s 29G X 5MM Accu-Chek UNK 01/31/ active Accu-Chek e CW3 Soft Touch 2019 Soft Touch ([facility] Lancets - 12:00: [facility]ets - [place] 00 AM Health EDT Care) Lancet Lancet 01/31/ active Lancet eCW3 Device - Device 2019 Device - ([place] - 12:00: [facility] 00 AM [facility] EDT Care) Glucose UNK 01/31/ active Glucose Test eCW3 Test Strips 2019 Strips ([place] [facility] Compatiable 12:00: Compatiable [facility] with 00 AM with Health Patients EDT Patients Care) Machine Machine Gauze Pads UNK 01/31/ active Gauze Pads 2 eCW3 2 2018 ([place] 12:00: [facility] 00 AM [facility] EDT Care) Accu-Chek UNK 01/31/ active Accu-Chek e CW3 Soft Touch 2019 Soft Touch ([facility] Lancets - 12:00: Lancets - [place] 00 AM Health EDT Care) Gauze Pads UNK 01/31/ active Gauze Pads 2 eCW3 2 2018 ([place] 12:00: [facility] 00 AM [facility] EDT Care) Lancet Lancet 01/31/ active Lancet eCW3 Device - Device 2019 Device - ([place] - 12:00: [facility] 00 AM [facility] EDT Care) Lancet Lancet 01/31/ active Lancet eCW3 Device - Device 2019 Device - ([place] - 12:00: [facility] 00 AM [facility] EDT Care) Glucose UNK 01/31/ active Glucose Test eCW3 Test Strips 2019 Strips ([place] [facility] Compat[facility] 12:00: Compatiable [facility] with 00 AM with Health Patients EDT Patients Care) Machine Machine Easy Touch Easy 01/31/ active Easy Touch eCW3 Safety Pen Touch 2019 Safety Pen ([facility] [place] 29G Safety 12:00: [place] 2 9G [facility] X 5MM Pen 00 AM X 5MM Health Needle EDT Care) s 29G X 5MM Accu-Chek UNK 01/31/ active Accu-Chek e CW3 Soft Touch 2019 Soft Touch ([facility] Lancets - 12:00: Lancets - [place] 00 AM Health EDT Care) Gauze Pads UNK 01/31/ active Gauze Pads 2 eCW3 2 2018 ([place] 12:00: [facility] 00 AM [facility] EDT Care) Alcohol UNK 01/31/ active Alcohol Prep eCW3 Prep Pads 2019 Pads 70 % ([place] 70 % 12:00: [facility] 00 AM [facility] EDT Care) Basaglar Basagl 01/31/ active Basaglar e CW3 KwikPen 100 ar 2019 KwikPen 100 ( [place] UNIT/ML [employer]Pe 12:00: UNIT/ML [facility] n 100 00 AM Health UNIT/M EDT Care) L Easy Touch Easy 01/31/ active Easy Touch eCW3 Safety Pen Touch 2019 Safety Pen ([facility] [place] 29G Safety 12:00: [place] 2 9G [facility] X 5MM Pen 00 AM X 5MM Health Needle EDT Care) s 29G X 5MM Accu-Chek UNK 01/31/ active Accu-Chek e CW3 Soft Touch 2019 Soft Touch ([facility] Lancets - 12:00: Lancets - [place] 00 AM Health EDT Care) Lancet Lancet 01/31/ active Lancet eCW3 Device - Device 2019 Device - ([place] [facility] - 12:00: [facility] 00 AM [facility] EDT Care) Alcohol UNK 01/31/ active Alcohol Prep eCW3 Prep Pads 2019 Pads 70 % ([place] 70 % 12:00: [facility] 00 AM [facility] EDT Care) Easy Touch Easy 01/31/ active Easy Touch eCW3 Safety Pen Touch 2019 Safety Pen ([facility] [place] 29G Safety 12:00: [place] 2 9G [facility] X 5MM Pen 00 AM X 5MM Health Needle EDT Care) s 29G X 5MM Lancet Lancet 01/31/ active Lancet eCW3 Device - Device 2019 Device - ([place] [facility] - 12:00: [facility] 00 AM [facility] EDT Care) Lancet Lancet 01/31/ active Lancet eCW3 Device - Device 2019 Device - ([place] [facility] - 12:00: [facility] 00 AM [facility] EDT Care) Accu-Chek UNK 01/31/ active Accu-Chek e CW3 Soft Touch 2019 Soft Touch ([facility] Lancets - 12:00: Lancets - [place] 00 AM Health EDT Care) Glucose UNK 01/31/ active Glucose Test eCW3 Test Strips 2019 Strips ([place] Compat[facility] 12:00: Compatiable [facility] with 00 AM with Health Patients EDT Patients Care) Machine Machine Glucose UNK 01/31/ active Glucose Test eCW3 Test Strips 2019 Strips ([place] Compatiable 12:00: Compatiable [facility] with 00 AM with Health Patients EDT Patients Care) Machine Machine Glucose UNK 01/31/ active Glucose Test eCW3 Test Strips 2019 Strips ([place] Compat[facility] 12:00: Compatiable [facility] with 00 AM with Health Patients EDT Patients Care) Machine Machine Accu-Chek UNK 01/31/ active Accu-Chek e CW3 Soft Touch 2019 Soft Touch ([facility] Lancets - 12:00: Lancets - [place] 00 AM Health EDT Care) Easy Touch Easy 01/31/ active Easy Touch eCW3 Safety Pen Touch 2019 Safety Pen ([facility] [place] 29G Safety 12:00: [place] 2 9G [facility] X 5MM Pen 00 AM X 5MM Health Needle EDT Care) s 29G X 5MM Accu-Chek UNK 01/31/ active Accu-Chek e CW3 Soft Touch 2019 Soft Touch ([facility] Lancets - 12:00: Lancets - [place] 00 AM Health EDT Care) Gauze Pads UNK 01/31/ active Gauze Pads 2 eCW3 2 2018 ([place] 12:00: [facility] 00 AM Health EDT Care) Alcohol UNK 01/31/ active Alcohol Prep eCW3 Prep Pads 2019 Pads 70 % ([place] 70 % 12:00: [facility] 00 AM [facility] EDT Care) Alcohol UNK 01/31/ active Alcohol Prep eCW3 Prep Pads 2019 Pads 70 % ([place] 70 % 12:00: [facility] 00 AM Health EDT Care) Easy Touch Easy 01/31/ active Easy Touch eCW3 Safety Pen Touch 2019 Safety Pen ([facility] [place] 29G Safety 12:00: [place] 2 9G [facility] X 5MM Pen 00 AM X 5MM Health Needle EDT Care) s 29G X 5MM Accu-Chek UNK 01/31/ active Accu-Chek e CW3 Soft Touch 2019 Soft Touch ([facility] Lancets - 12:00: Lancets - [place] 00 AM Health EDT Care) Gauze Pads UNK 01/31/ active Gauze Pads 2 eCW3 2 2018 ([place] 12:00: [facility] 00 AM [facility] EDT Care) Glucose UNK 01/31/ active Glucose Test eCW3 Test Strips 2019 Strips ([place] Compat[facility] 12:00: Compatiable [facility] with 00 AM with Health Patients EDT Patients Care) Machine Machine Glucose UNK 01/31/ active Glucose Test eCW3 Test Strips 2019 Strips ([place] Compat[facility] 12:00: Compatiable [facility] with 00 AM with Health Patients EDT Patients Care) Machine Machine Lancet Lancet 01/31/ active Lancet eCW3 Device - Device 2019 Device - ([place] [facility] - 12:00: [facility] 00 AM Health EDT Care) Gauze Pads UNK 01/31/ active Gauze Pads 2 eCW3 2 2018 ([place] 12:00: [facility] 00 AM Health EDT Care) Accu-Chek UNK 01/31/ active Accu-Chek e CW3 Soft Touch 2019 Soft Touch ([facility] Lancets - 12:00: Lancets - [place] 00 AM Health EDT Care) Glucose UNK 01/31/ active Glucose Test eCW3 Test Strips 2019 Strips ([place] Compat[facility] 12:00: Compatiable [facility] with 00 AM with Health Patients EDT Patients Care) Machine Machine Alcohol UNK 01/31/ active Alcohol Prep eCW3 Prep Pads 2019 Pads 70 % ([place] 70 % 12:00: [facility] 00 AM Health EDT Care) Accu-Chek Accu-C 01/31/ active Accu-Chek eCW3 Soft Touch hek 2019 Soft Touch ([facility] Lancets - Soft 12:00: Lancets - [place] Touch 00 AM Health Lancet EDT Care) s - Lancet Lancet 01/31/ active Lancet eCW3 Device - Device 2019 Device - ([place] [facility] - 12:00: [facility] 00 AM Health EDT Care) Lancet Lancet 01/31/ active Lancet eCW3 Device - Device 2019 Device - ([place] [facility] - 12:00: [facility] 00 AM Health EDT Care) Glucose UNK 01/31/ active Glucose Test eCW3 Test Strips 2019 Strips ([place] Compat[facility] 12:00: Compatiable [facility] with 00 AM with Health Patients EDT Patients Care) Machine Machine Gauze Pads UNK 01/31/ active Gauze Pads 2 eCW3 2 2018 ([place] 12:00: [facility] 00 AM Health EDT Care) Alcohol UNK 01/31/ active Alcohol Prep eCW3 Prep Pads 2019 Pads 70 % ([place] 70 % 12:00: [facility] 00 AM Health EDT Care) Easy Touch Easy 01/31/ active Easy Touch eCW3 Safety Pen Touch 2019 Safety Pen ([facility] [place] 29G Safety 12:00: [place] 2 9G [facility] X 5MM Pen 00 AM X 5MM Health Needle EDT Care) s 29G X 5MM Gauze Pads UNK 01/31/ active Gauze Pads 2 eCW3 2 2018 ([place] 12:00: [facility] 00 AM Health EDT Care) Glucose UNK 01/31/ active Glucose Test eCW3 Test Strips 2019 Strips ([place] Compat[facility] 12:00: Compatiable [facility] with 00 AM with Health Patients EDT Patients Care) Machine Machine Glucose UNK 01/31/ active Glucose Test eCW3 Test Strips 2019 Strips ([place] Compat[facility] 12:00: Compatiable [facility] with 00 AM with Health Patients EDT Patients Care) Machine Machine Easy Touch Easy 01/31/ active Easy Touch eCW3 Safety Pen Touch 2019 Safety Pen ([facility] [place] 29G Safety 12:00: [place] 2 9G [facility] X 5MM Pen 00 AM X 5MM Health Needle EDT Care) s 29G X 5MM Glucose UNK 01/31/ active Glucose Test eCW3 Test Strips 2019 Strips ([place] Compat[facility] 12:00: Compatiable [facility] with 00 AM with Health Patients EDT Patients Care) Machine Machine Easy Touch Easy 01/31/ active Easy Touch eCW3 Safety Pen Touch 2019 Safety Pen ([facility] [place] 29G Safety 12:00: [place] 2 9G [facility] X 5MM Pen 00 AM X 5MM Health Needle EDT Care) s 29G X 5MM Gauze Pads UNK 01/31/ active Gauze Pads 2 eCW3 2 2018 ([place] 12:00: [facility] 00 AM Health EDT Care) Gauze Pads UNK 01/31/ active Gauze Pads 2 eCW3 2 2019 ([place] 12:00: [facility] 00 AM Health EDT Care) Alcohol UNK 01/31/ active Alcohol Prep eCW3 Prep Pads 2019 Pads 70 % ([place] 70 % 12:00: [facility] 00 AM Health EDT Care) Easy Touch Easy 01/31/ active Easy Touch eCW3 Safety Pen Touch 2019 Safety Pen ([facility] [place] 29G Safety 12:00: [place] 2 9G [facility] X 5MM Pen 00 AM X 5MM Health Needle EDT Care) s 29G X 5MM Glucose UNK 01/31/ active Glucose Test eCW3 Test Strips 2019 Strips ([place] Compat[facility] 12:00: Compatiable [facility] with 00 AM with Health Patients EDT Patients Care) Machine Machine Alcohol UNK 01/31/ active Alcohol Prep eCW3 Prep Pads 2019 Pads 70 % ([place] 70 % 12:00: [facility] 00 AM Health EDT Care) Accu-Chek UNK 01/31/ active Accu-Chek e CW3 Soft Touch 2019 Soft Touch ([facility] Lancets - 12:00: Lancets - [place] 00 AM Health EDT Care) Easy Touch Easy 01/31/ active Easy Touch eCW3 Safety Pen Touch 2019 Safety Pen ([facility] [place] 29G Safety 12:00: [place] 2 9G [facility] X 5MM Pen 00 AM X 5MM Health Needle EDT Care) s 29G X 5MM Glucose UNK 01/31/ active Glucose Test eCW3 Test Strips 2019 Strips ([place] Compat[facility] 12:00: Compatiable [facility] with 00 AM with Health Patients EDT Patients Care) Machine Machine Lancet Lancet 01/31/ active Lancet eCW3 Device - Device 2019 Device - ([place] - 12:00: [facility] 00 AM Health EDT Care) Accu-Chek UNK 01/31/ active Accu-Chek e CW3 Soft Touch 2019 Soft Touch ([facility] Lancets - 12:00: Lancets - [place] 00 AM Health EDT Care) Easy Touch Easy 01/31/ active Easy Touch eCW3 Safety Pen Touch 2019 Safety Pen ([facility] [place] 29G Safety 12:00: [place] 2 9G [facility] X 5MM Pen 00 AM X 5MM Health Needle EDT Care) s 29G X 5MM Lancet Lancet 01/31/ active Lancet eCW3 Device - Device 2019 Device - ([place] - 12:00: [facility] 00 AM Health EDT Care) Glucose UNK 01/31/ active Glucose Test eCW3 Test Strips 2019 Strips ([place] Compatiable 12:00: Compatiable [facility] with 00 AM with Health Patients EDT Patients Care) Machine Machine Easy Touch Easy 01/31/ active Easy Touch eCW3 Safety Pen Touch 2019 Safety Pen ([facility] [place] 29G Safety 12:00: [place] 2 9G [facility] X 5MM Pen 00 AM X 5MM Health Needle EDT Care) s 29G X 5MM Easy Touch Easy 01/31/ active Easy Touch eCW3 Safety Pen Touch 2019 Safety Pen ([facility] [place] 29G Safety 12:00: [place] 2 9G [facility] X 5MM Pen 00 AM X 5MM Health Needle EDT Care) s 29G X 5MM Gauze Pads UNK 01/31/ active Gauze Pads 2 eCW3 2 2018 ([place] 12:00: [facility] 00 AM Health EDT Care) Alcohol UNK 01/31/ active Alcohol Prep eCW3 Prep Pads 2019 Pads 70 % ([place] 70 % 12:00: [facility] 00 AM Health EDT Care) Easy Touch Easy 01/31/ active Easy Touch eCW3 Safety Pen Touch 2019 Safety Pen ([facility] [place] 29G Safety 12:00: [place] 2 9G [place] X 5MM Pen 00 AM X 5MM Health Needle EDT Care) s 29G X 5MM Glucose UNK 01/31/ active Glucose Test eCW3 Test Strips 2019 Strips ([place] Compatiable 12:00: Compatiable [place] with 00 AM with Health Patients EDT Patients Care) Machine Machine Accu-Chek UNK 01/31/ active Accu-Chek e CW3 Soft Touch 2019 Soft Touch ([facility] Lancets - 12:00: Lancets - [place] 00 AM Health EDT Care) Alcohol UNK 01/31/ active Alcohol Prep eCW3 Prep Pads 2019 Pads 70 % ([place] 70 % 12:00: [facility] 00 AM Health EDT Care) Lancet Lancet 01/31/ active Lancet eCW3 Device - Device 2019 Device - ([place] [facility] - 12:00: [facility] 00 AM Health EDT Care) Lancet Lancet 01/31/ active Lancet eCW3 Device - Device 2019 Device - ([place] [facility] - 12:00: [facility] 00 AM Health EDT Care) Lancet Lancet 01/31/ active Lancet eCW3 Device - Device 2019 Device - ([place] [facility] - 12:00: [facility] 00 AM Health EDT Care) Gauze Pads UNK 01/31/ active Gauze Pads 2 eCW3 2 2018 ([place] 12:00: [facility] 00 AM Health EDT Care) Glucose UNK 01/31/ active Glucose Test eCW3 Test Strips 2019 Strips ([place] Compatiable 12:00: Compatiable [facility] with 00 AM with Health Patients EDT Patients Care) Machine Machine Glucose UNK 01/31/ active Glucose Test eCW3 Test Strips 2019 Strips ([place] Compatiable 12:00: Compatiable [facility] with 00 AM with Health Patients EDT Patients Care) Machine Machine Gauze Pads UNK 01/31/ active Gauze Pads 2 eCW3 2 2018 ([place] 12:00: [facility] 00 AM Health EDT Care) Gauze Pads UNK 01/31/ active Gauze Pads 2 eCW3 2 2018 ([place] 12:00: [facility] 00 AM Health EDT Care) Lancet Lancet 01/31/ active Lancet eCW3 Device - Device 2019 Device - ([place] - 12:00: [facility] 00 AM Health EDT Care) Accu-Chek UNK 01/31/ active Accu-Chek e CW3 Soft Touch 2019 Soft Touch ([facility] Lancets - 12:00: Lancets - [place] 00 AM Health EDT Care) Gauze Pads UNK 01/31/ active Gauze Pads 2 eCW3 2 2018 ([place] 12:00: [facility] 00 AM Health EDT Care) Glucose UNK 01/31/ active Glucose Test eCW3 Test Strips 2019 Strips ([place] Compatiable 12:00: Compatiable [facility] with 00 AM with Health Patients EDT Patients Care) Machine Machine Easy Touch Easy 01/31/ active Easy Touch eCW3 Safety Pen Touch 2019 Safety Pen ([facility] [place] 29G Safety 12:00: [place] 2 9G [facility] X 5MM Pen 00 AM X 5MM Health Needle EDT Care) s 29G X 5MM Easy Touch Easy 01/31/ active Easy Touch eCW3 Safety Pen Touch 2019 Safety Pen ([facility] [place] 29G Safety 12:00: [place] 2 9G [place] X 5MM Pen 00 AM X 5MM Health Needle EDT Care) s 29G X 5MM Glucose UNK 01/31/ active Glucose Test eCW3 Test Strips 2019 Strips ([place] Compatiable 12:00: Compatiable [facility] with 00 AM with Health Patients EDT Patients Care) Machine Machine Alcohol UNK 01/31/ active Alcohol Prep eCW3 Prep Pads 2019 Pads 70 % ([place] 70 % 12:00: [facility] 00 AM Health EDT Care) Alcohol UNK 01/31/ active Alcohol Prep eCW3 Prep Pads 2019 Pads 70 % ([place] 70 % 12:00: [facility] 00 AM Health EDT Care) Gauze Pads UNK 01/31/ active Gauze Pads 2 eCW3 2 2018 ([place] 12:00: [facility] 00 AM Health EDT Care) Easy Touch Easy 01/31/ active Easy Touch eCW3 Safety Pen Touch 2019 Safety Pen ([facility]son [place] 29G Safety 12:00: [place] 2 9G [place] X 5MM Pen 00 AM X 5MM Health Needle EDT Care) s 29G X 5MM Gauze Pads UNK 01/31/ active Gauze Pads 2 eCW3 2 2018 ([place] 12:00: [place] 00 AM Health EDT Care) Gauze Pads UNK 01/31/ active Gauze Pads 2 eCW3 2 2018 ([place] 12:00: [facility] 00 AM Health EDT Care) Alcohol UNK 01/31/ active Alcohol Prep eCW3 Prep Pads 2019 Pads 70 % ([place] [place] 70 % 12:00: [facility] 00 AM Health EDT Care) Accu-Chek UNK 01/31/ active Accu-Chek e CW3 Soft Touch 2019 Soft Touch ([facility] Lancets - 12:00: Lancets - [place] 00 AM Health EDT Care) Lancet Lancet 01/31/ active Lancet eCW3 Device - Device 2019 Device - ([facility] - 12:00: [facility] 00 AM Health EDT Care) Easy Touch Easy 01/31/ active Easy Touch eCW3 Safety Pen Touch 2019 Safety Pen ([facility] [place] 29G Safety 12:00: [place] 2 9G [place] X 5MM Pen 00 AM X 5MM Health Needle EDT Care) s 29G X 5MM Easy Touch Easy 01/31/ active Easy Touch eCW3 Safety Pen Touch 2019 Safety Pen ([facility] [place] 29G Safety 12:00: [place] 2 9G [place] X 5MM Pen 00 AM X 5MM Health Needle EDT Care) s 29G X 5MM Alcohol UNK 01/31/ active Alcohol Prep eCW3 Prep Pads 2019 Pads 70 % ([place] 70 % 12:00: [place] 00 AM Health EDT Care) Gauze Pads UNK 01/31/ active Gauze Pads 2 eCW3 2 2018 ([place] 12:00: [place] 00 AM Health EDT Care) Gauze Pads UNK 01/31/ active Gauze Pads 2 eCW3 2 2018 ([place] 12:00: [place] 00 AM Health EDT Care) Alcohol UNK 01/31/ active Alcohol Prep eCW3 Prep Pads 2019 Pads 70 % ([place] 70 % 12:00: [place] 00 AM Health EDT Care) Easy Touch Easy 01/31/ active Easy Touch eCW3 Safety Pen Touch 2019 Safety Pen ([facility] [place] 29G Safety 12:00: [place] 2 9G [place] X 5MM Pen 00 AM X 5MM Health Needle EDT Care) s 29G X 5MM Lancet Lancet 01/31/ active Lancet eCW3 Device - Device 2019 Device - ([place] [facility] - 12:00: [place] 00 AM Health EDT Care) Accu-Chek UNK 01/31/ active Accu-Chek e CW3 Soft Touch 2019 Soft Touch ([facility] Lancets - 12:00: Lancets - [place] 00 AM Health EDT Care) Easy Touch Easy 01/31/ active Easy Touch eCW3 Safety Pen Touch 2019 Safety Pen ([facility] [place] 29G Safety 12:00: [place] 2 9G [place] X 5MM Pen 00 AM X 5MM Health Needle EDT Care) s 29G X 5MM Alcohol UNK 01/31/ active Alcohol Prep eCW3 Prep Pads 2019 Pads 70 % ([place] 70 % 12:00: [place] 00 AM Health EDT Care) Accu-Chek UNK 01/31/ active Accu-Chek e CW3 Soft Touch 2019 Soft Touch ([facility] Lancets - 12:00: Lancets - [place] 00 AM Health EDT Care) Glucose UNK 01/31/ active Glucose Test eCW3 Test Strips 2019 Strips ([place] Compatiable 12:00: Compatiable [place] with 00 AM with Health Patients EDT Patients Care) Machine Machine Accu-Chek UNK 01/31/ active Accu-Chek e CW3 Soft Touch 2019 Soft Touch ([facility] Lancets - 12:00: Lancets - [place] 00 AM Health EDT Care) Alcohol UNK 01/31/ active Alcohol Prep eCW3 Prep Pads 2019 Pads 70 % ([place] 70 % 12:00: [place] 00 AM Health EDT Care) Gauze Pads UNK 01/31/ active Gauze Pads 2 eCW3 2 2019 ([place] 12:00: [place] 00 AM Health EDT Care) Gauze Pads UNK 01/31/ active Gauze Pads 2 eCW3 2 2019 ([place] 12:00: [place] 00 AM Health EDT Care) Accu-Chek UNK 01/31/ active Accu-Chek e CW3 Soft Touch 2019 Soft Touch ([facility] Lancets - 12:00: Lancets - [place] 00 AM Health EDT Care) Lancet Lancet 01/31/ active Lancet eCW3 Device - Device 2019 Device - ([place] - 12:00: [place] 00 AM Health EDT Care) Alcohol UNK 01/31/ active Alcohol Prep eCW3 Prep Pads 2019 Pads 70 % ([place] 70 % 12:00: [place] 00 AM Health EDT Care) Accu-Chek UNK 01/31/ active Accu-Chek e CW3 Soft Touch 2019 Soft Touch ([facility] Lancets - 12:00: Lancets - [place] 00 AM Health EDT Care) Lancet Lancet 01/31/ active Lancet eCW3 Device - Device 2019 Device - ([place] [facility] - 12:00: [place] 00 AM Health EDT Care) Lancet Lancet 01/31/ active Lancet eCW3 Device - Device 2019 Device - ([place] [facility] - 12:00: [place] 00 AM Health EDT Care) Lancet Lancet 01/31/ active Lancet eCW3 Device - Device 2019 Device - ([place] - 12:00: [place] 00 AM Health EDT Care) Gauze Pads UNK 01/31/ active Gauze Pads 2 eCW3 2 2018 ([place] 12:00: [place] 00 AM Health EDT Care) Easy Touch Easy 01/31/ active Easy Touch eCW3 Safety Pen Touch 2019 Safety Pen ([facility] [place] 29G Safety 12:00: [place] 2 9G [place] X 5MM Pen 00 AM X 5MM Health Needle EDT Care) s 29G X 5MM Easy Touch Easy 01/31/ active Easy Touch eCW3 Safety Pen Touch 2019 Safety Pen ([facility] [place] 29G Safety 12:00: [place] 2 9G [place] X 5MM Pen 00 AM X 5MM Health Needle EDT Care) s 29G X 5MM Lancet Lancet 01/31/ active Lancet eCW3 Device - Device 2019 Device - ([place] - 12:00: [place] 00 AM Health EDT Care) Glucose UNK 01/31/ active Glucose Test eCW3 Test Strips 2019 Strips ([place] Compatiable 12:00: Compatiable [place] with 00 AM with Health Patients EDT Patients Care) Machine Machine Alcohol UNK 01/31/ active Alcohol Prep eCW3 Prep Pads 2019 Pads 70 % ([place] 70 % 12:00: [place] 00 AM Health EDT Care) Accu-Chek UNK 01/31/ active Accu-Chek e CW3 Soft Touch 2019 Soft Touch ([facility] Lancets - 12:00: Lancets - [place] 00 AM Health EDT Care) Alcohol UNK 01/31/ active Alcohol Prep eCW3 Prep Pads 2019 Pads 70 % ([place] 70 % 12:00: [place] 00 AM Health EDT Care) Glucose UN01/31/ active Glucose Test eCW3 Test Strips 2019 Strips ([place] Compatiable 12:00: Compatiable [place] with 00 AM with Health Patients EDT Patients Care) Machine Machine Gauze Pads UNK 01/31/ active Gauze Pads 2 eCW3 2 2018 ([place] 12:00: [place] 00 AM Health EDT Care) Alcohol UNK 01/31/ active Alcohol Prep eCW3 Prep Pads 2019 Pads 70 % ([place] 70 % 12:00: [place] 00 AM Health EDT Care) Accu-Chek UNK 01/31/ active Accu-Chek e CW3 Soft Touch 2019 Soft Touch ([facility] Lancets - 12:00: Lancets - [place] 00 AM Health EDT Care) Lancet Lancet 01/31/ active Lancet eCW3 Device - Device 2019 Device - ([place] - 12:00: [place] 00 AM Health EDT Care) Accu-Chek UNK 01/31/ active Accu-Chek e CW3 Soft Touch 2019 Soft Touch ([facility] Lancets - 12:00: Lancets - [place] 00 AM Health EDT Care) MetFORMIN MetFOR 2.0 active MetFORMIN eCW3 HCl ER 500 MIN 2018 {tabl HCl ER 500 ([facility] mg HCl ER 12:00: et_wi mg [place] 500 mg 00 AM _ Health EDT ening Care) _meal } MetFORMIN MetFOR 2.0 active MetFORMIN eCW3 HCl ER 500 MIN 2018 {tabl HCl ER 500 ([facility] mg HCl ER 12:00: et_wi mg [place] 500 mg 00 AM th_ev Health EDT ening Care) _meal } MetFORMIN MetFOR 01/12/ 2.0 active MetFORMIN eCW3 HCl ER 500 MIN 2018 {tabl HCl ER 500 ([facility] mg HCl ER 12:00: et_wi mg [place] 500 mg 00 AM th_ Health EDT ening Care) _meal } MetFORMIN MetFOR 2.0 active MetFORMIN eCW3 HCl ER 500 MIN 2018 {tabl HCl ER 500 ([facility] mg HCl ER 12:00: et_wi mg [place] 500 mg 00 [facility] _[facility] } MetFORMIN MetFOR 2.0 active MetFORMIN eCW3 HCl ER 500 MIN 2019 {tabl HCl ER 500 ([facility] mg HCl ER 12:00: et_wi mg [place] 500 mg 00 AM [facility] EDT [facility]) _meal } MetFORMIN MetFOR 2.0 active MetFORMIN eCW3 HCl ER 500 MIN 2018 {tabl HCl ER 500 ([facility] mg HCl ER 12:00: et_wi mg [place] 500 mg 00 AM [facility] EDT [facility]) _meal } MetFORMIN MetFOR 2.0 active MetFORMIN eCW3 HCl ER 500 MIN 2018 {tabl HCl ER 500 ([facility] mg HCl ER 12:00: et_wi mg [place] 500 mg 00 AM [facility] EDT [facility]) _meal } MetFORMIN MetFOR 2.0 active MetFORMIN eCW3 HCl ER 500 MIN 2018 {tabl HCl ER 500 ([facility] mg HCl ER 12:00: et_wi mg [place] 500 mg 00 AM [facility] EDT [facility] Care) _meal } MetFORMIN MetFOR 2.0 active MetFORMIN eCW3 HCl ER 500 MIN 2019 {tabl HCl ER 500 ([facility] mg HCl ER 12:00: et_wi mg [place] 500 mg 00 AM [facility] EDT [facility] Care) _meal } MetFORMIN MetFOR 2.0 active MetFORMIN eCW3 HCl ER 500 MIN 2019 {tabl HCl ER 500 ([facility] mg HCl ER 12:00: et_wi mg [place] 500 mg 00 AM [facility] EDT [facility] Care) _meal } MetFORMIN MetFOR 2.0 active MetFORMIN eCW3 HCl ER 500 MIN 2019 {tabl HCl ER 500 ([facility] mg HCl ER 12:00: et_wi mg [place] 500 mg 00 AM [facility] EDT [facility] Care) _meal } MetFORMIN MetFOR 2.0 active MetFORMIN eCW3 HCl ER 500 MIN 2019 {tabl HCl ER 500 ([facility] mg HCl ER 12:00: et_wi mg [place] 500 mg 00 AM [facility] EDT [facility]) _meal } MetFORMIN MetFOR .0 active MetFORMIN eCW3 HCl ER 500 MIN 2019 {tabl HCl ER 500 ([facility] mg HCl ER 12:00: et_wi mg [place] 500 mg 00 AM [facility] EDT [facility]) _meal } MetFORMIN MetFOR .0 active MetFORMIN eCW3 HCl ER 500 MIN 2019 {tabl HCl ER 500 ([facility] mg HCl ER 12:00: et_wi mg [place] 500 mg 00 AM [facility] EDT [facility]) _meal } MetFORMIN MetFOR .0 active MetFORMIN eCW3 HCl ER 500 MIN 2018 {tabl HCl ER 500 ([facility] mg HCl ER 12:00: et_wi mg [place] 500 mg 00 AM [facility] EDT [facility]) _meal } MetFORMIN MetFOR .0 active MetFORMIN eCW3 HCl ER 500 MIN 2018 {tabl HCl ER 500 ([facility] mg HCl ER 12:00: et_wi mg [place] 500 mg 00 AM [facility] EDT [facility]) _meal } MetFORMIN MetFOR .0 active MetFORMIN eCW3 HCl ER 500 MIN 2018 {tabl HCl ER 500 ([facility] mg HCl ER 12:00: et_wi mg [place] 500 mg 00 AM [facility] EDT [facility]) _meal } MetFORMIN MetFOR .0 active MetFORMIN eCW3 HCl ER 500 MIN 2018 {tabl HCl ER 500 ([facility] mg HCl ER 12:00: et_wi mg [place] 500 mg 00 AM [facility] EDT [facility] Care) _meal } MetFORMIN MetFOR .0 active MetFORMIN eCW3 HCl ER 500 MIN 2019 {tabl HCl ER 500 ([facility] mg HCl ER 12:00: et_wi mg [place] 500 mg 00 AM [facility] Health EDT [facility] Care) _meal } MetFORMIN MetFOR .0 active MetFORMIN eCW3 HCl ER 500 MIN 2019 {tabl HCl ER 500 ([facility] mg HCl ER 12:00: et_wi mg [place] 500 mg 00 AM [facility] Health EDT [facility] Care) _meal } 24 HR MetFOR 2.0 active MetFORMIN eCW 3 Metformin MIN 2019 {tabl HCl ER 500 ([facility] hydrochlori HCl ER 12:00: et_wi MG [place] de 500 MG 500 MG 00 AM th_ev Health Extended EDT ening Care) Release _meal Oral Tablet } MetFORMIN HCl ER 500 MG MetFORMIN MetFOR 2.0 active MetFORMIN eCW3 HCl ER 500 MIN 2018 {tabl HCl ER 500 ([facility] mg HCl ER 12:00: et_wi mg [place] 500 mg 00 AM th_ Health EDT ening Care) _meal } MetFORMIN MetFOR .0 active MetFORMIN eCW3 HCl ER 500 MIN 2018 {tabl HCl ER 500 ([facility] mg HCl ER 12:00: et_wi mg [place] 500 mg 00 AM th_ Health EDT ening Care) _meal } MetFORMIN MetFOR .0 active MetFORMIN eCW3 HCl ER 500 MIN 2018 {tabl HCl ER 500 ([facility] mg HCl ER 12:00: et_wi mg [place] 500 mg 00 AM th_ Health EDT ening Care) _meal } Misc. UNK 01/10/ active Misc. eCW3 Devices - 2019 Devices - ([place] 12:00: [place] 00 AM Health EDT Care) Misc. UNK 01/10/ active Misc. eCW3 Devices - 2019 Devices - ([place] [place] 12:00: [place] 00 AM Health EDT Care) Misc. UNK 01/10/ active Misc. eCW3 Devices - 2019 Devices - ([place] 12:00: [place] 00 AM Health EDT Care) Misc. UNK 01/10/ active Misc. eCW3 Devices - 2019 Devices - ([place] 12:00: [place] 00 AM Health EDT Care) Misc. 01/10/ suspend Misc. eCW3 Devices - 2019 ed Devices - ([place] 12:00: [place] 00 AM Health EDT Care) Misc. UNK 01/10/ active Misc. eCW3 Devices - 2019 Devices - ([place] 12:00: [place] 00 AM Health EDT Care) Misc. K 01/10/ active Misc. eCW3 Devices - 2019 Devices - ([place] 12:00: [place] 00 AM Health EDT Care) Misc. UNK 01/10/ active Misc. eCW3 Devices - 2019 Devices - ([place] 12:00: [place] 00 AM Health EDT Care) Misc. UNK 01/10/ active Misc. eCW3 Devices - 2019 Devices - ([place] 12:00: [place] 00 AM Health EDT Care) Misc. UNK 01/10/ suspend Misc. eCW3 Devices - 2019 ed Devices - ([place] 12:00: [place] 00 AM Health EDT Care) Misc. UNK 01/10/ active Misc. eCW3 Devices - 2019 Devices - ([place] 12:00: [place] 00 AM Health EDT Care) Misc. UNK 01/10/ active Misc. eCW3 Devices - 2019 Devices - ([place] 12:00: [place] 00 AM Health EDT Care) Misc. UNK 01/10/ suspend Misc. eCW3 Devices - 2019 ed Devices - ([place] 12:00: [place] 00 AM Health EDT Care) Misc. UNK 01/10/ active Misc. eCW3 Devices - 2019 Devices - ([place] [facility] 12:00: [place] 00 AM Health EDT Care) Misc. UNK 01/10/ active Misc. eCW3 Devices - 2019 Devices - ([place] 12:00: [place] 00 AM Health EDT Care) Misc. UNK 01/10/ suspend Misc. eCW3 Devices - 2019 ed Devices - ([place] 12:00: [place] 00 AM Health EDT Care) Misc. UNK 01/10/ active Misc. eCW3 Devices - 2019 Devices - ([place] 12:00: [place] 00 AM Health EDT Care) Misc. UNK 01/10/ active Misc. eCW3 Devices - 2019 Devices - ([place] 12:00: [place] 00 AM Health EDT Care) Misc. UNK 01/10/ active Misc. eCW3 Devices - 2019 Devices - ([place] 12:00: [place] 00 AM Health EDT Care) Misc. UNK 01/10/ active Misc. eCW3 Devices - 2019 Devices - ([place] 12:00: [place] 00 AM Health EDT Care) Misc. UNK 01/10/ active Misc. eCW3 Devices - 2019 Devices - ([place] 12:00: [place] 00 AM Health EDT Care) Misc. UNK 01/10/ active Misc. eCW3 Devices - 2019 Devices - ([place] [facility] 12:00: [place] 00 AM Health EDT Care) Misc. UNK 01/10/ active Misc. eCW3 Devices - 2019 Devices - ([place] 12:00: [place] 00 AM Health EDT Care) Misc. UNK 01/10/ active Misc. eCW3 Devices - 2019 Devices - ([place] 12:00: [place] 00 AM Health EDT Care) Lisinopril LISINO 1.0 active LISINOPRIL eCW3 20 MG Oral PRIL {tabl 20 mg ([place] Tablet 20 mg et} [facility] LISINOPRIL Health 20 mg Care) Insurance Providers Payer name Policy type Policy ID Covered Covered green party's Policy P yann / Coverage green party ID relationship to Perez Inf ormation type perez MEDICAID [id number] SP [id number] MEDICARE [id number] [phone] Problems, Conditions, and Diagnoses Code Display Name Description Problem Type Effective Data Sour ce(s) Dates M20.41 Other hammer toe(s) Other hammer Problem 06/27/2019 eCW 3 ([place] (acquired), right toe(s) (acquired), 12:00:00 A M [facility] foot right foot EST Care) M20.42 Other hammer toe(s) Other hammer Problem 06/27/2019 eCW 3 ([place] (acquired), left toe(s) (acquired), 12:00:00 AM [facility] foot left foot EST Care) R26.9 Gait abnormality Gait abnormality Problem 06/27/2019 eC W3 ([place] 12:00:00 AM [facility] EST Care) R26.89 Unstable balance Unstable balance Problem 06/27/2019 eC W3 ([place] 12:00:00 AM [facility] EST Care) M20.11 Hallux valgus Hallux valgus Problem 06/27/2019 eCW3 ([facility] (acquired), right (acquired), right 12:00:00 AM [facility] foot foot EST Care) M20.12 Hallux valgus Hallux valgus Problem 06/27/2019 eCW3 ([facility] (acquired), left (acquired), left 12:00:00 AM [facility] foot foot EST Care) E11.9 Diabetes mellitus Diabetes mellitus Problem 06/27/2019 eCW3 ([place] type 2, noninsulin type 2, noninsulin 12:00:00 AM [facility] dependent dependent EST Care) K08.101 Complete Complete Problem 03/06/2019 eCW3 ([place] edentulism, class I edentulism, class 12:00:00 AM [facility] I EDT Care) 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 Problem 01/31/2019 eCW3 ([place] use of insulin use of insulin 12:00:00 AM [facility] EDT Care) E11.9 Type 2 diabetes Type 2 diabetes Problem 01/31/2019 eCW3 ([place] mellitus without mellitus without 12:00:00 AM [facility] complications complications EDT Care) 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 Problem 01/31/2019 eCW3 ([place] use of insulin use of insulin 12:00:00 AM [facility] EDT Care) K00.0 Edentulism Edentulism Problem 01/30/2019 eCW3 ([place] 12:00:00 AM [facility] EDT Care) E11.9 Type 2 diabetes Type 2 diabetes Problem 01/12/2019 eCW3 ([place] mellitus without mellitus without 12:00:00 AM [facility] complication, complication, EDT Care) without long-term without long-term current use of current use of insulin insulin E11.9 Type 2 diabetes Type 2 diabetes Problem 01/12/2019 eCW3 ([place] mellitus without mellitus without 12:00:00 AM [facility] complication, complication, EDT Care) without long-term without long-term current use of current use of insulin insulin Surgeries/Procedures Procedure Description Date Indications Data Source(s) Injection, insulin, 01/31/2019 eCW3 ( [place] per 5 units 12:00:00 AM [facility] Health Care) Results ID Date Data Source [id number] 10/02/2019 12:00:00 AM EDT [facility] Name Value Range Interpretation Code Description Data Jennifer rce(s) Supporting Document(s ) 2019-nCoV [facility] RNA XXX KRYSTAL+probe- Imp This lab was ordered by [employer] and reported by [employer]. Procedure Social History Code Duration Value Status Description Data Source(s ) Smoking 10/12/2019 Current Smoker completed Current Smoker eCW3 ( [place] 12:00:00 AM EDT Health Ca re) Smoking 10/12/2019 Current Smoker completed Current Smoker eCW3 ( [place] 12:00:00 AM EDT Health Ca re) Smoking 10/12/2019 Current Smoker completed Current Smoker eCW3 ( [place] 12:00:00 AM EDT Health Ca re) Smoking 10/12/2019 Current Smoker completed Current Smoker eCW3 ( [place] 12:00:00 AM EDT Health Ca re) Smoking 10/12/2019 Current Smoker completed Current Smoker eCW3 ( [place] 12:00:00 AM EDT Health Ca re) Smoking 10/12/2019 Current Smoker completed Current Smoker eCW3 ( [place] 12:00:00 AM EDT Health Ca re) Smoking 10/12/2019 Current Smoker completed Current Smoker eCW3 ( [place] 12:00:00 AM EDT Health Ca re) Smoking 10/12/2019 Current Smoker completed Current Smoker eCW3 ( [place] 12:00:00 AM EDT Health Ca re) Smoking 10/12/2019 Current Smoker completed Current Smoker eCW3 ( [place] 12:00:00 AM EDT Health Ca re) Smoking 10/12/2019 Current Smoker completed Current Smoker eCW3 ( [place] 12:00:00 AM EDT Health Ca re) Smoking 10/12/2019 Current Smoker completed Current Smoker eCW3 ( [place] 12:00:00 AM EDT Health Ca re) Smoking 10/12/2019 Current Smoker completed Current Smoker eCW3 ( [place] 12:00:00 AM EDT Health Ca re) Smoking 10/12/2019 Current Smoker completed Current Smoker eCW3 ( [place] 12:00:00 AM EDT Health Ca re) Smoking 10/12/2019 Current Smoker completed Current Smoker eCW3 ( [place] 12:00:00 AM EDT Health Ca re) Smoking 10/12/2019 Current Smoker completed Current Smoker eCW3 ( [place] 12:00:00 AM EDT Health Ca re) Smoking 10/12/2019 Current Smoker completed Current Smoker eCW3 ( [place] 12:00:00 AM EDT Health Ca re) Smoking 10/12/2019 Current Smoker completed Current Smoker eCW3 ( [place] 12:00:00 AM [facility] Health [place] re) Smoking 10/12/2019 Current Smoker completed Current Smoker eCW3 ( [place] 12:00:00 AM [facility] Health [place] re) Smoking 10/12/2019 Current Smoker completed Current Smoker eCW3 ( [place] 12:00:00 AM [facility] Health [place] re) Smoking 08/07/2019 Current Smoker completed Current Smoker eCW3 ( [place] 12:00:00 AM [facility] Health [place] re) Smoking 08/07/2019 Current Smoker completed Current Smoker eCW3 ( [place] 12:00:00 AM [facility] Health [place] re) Smoking 08/07/2019 Current Smoker completed Current Smoker eCW3 ( [place] 12:00:00 AM [facility] Health [place] re) Smoking 08/07/2019 Current Smoker completed Current Smoker eCW3 ( [place] 12:00:00 AM [facility] re) Smoking 02/22/2019 Current Smoker completed Current Smoker eCW3 ( [place] 12:00:00 AM [facility] Health [place] re) Vital Signs ID Date Data Source UNK Name Value Range Interpretation Code Description Data Source(s) Diastolic blood 62 mm[Hg] 62 mm[Hg] eCW3 ([facility]) Systolic blood 115 mm[Hg] 115 mm[Hg] eCW3 ([facility]) Body temperature 98.4 [degF] 98.4 [degF] eCW3 ( [facility]) Heart rate 18 /min 18 /min eCW3 ([facility]) Body mass index 17.73 kg/m2 17.73 kg/m2 eCW3 ([facility] (BMI) [Ratio] [facility]) Body weight [lb_av] eCW3 ([facility]) Body height [in_i] eCW3 ([facility]) Diastolic blood 75 mm[Hg] 75 mm[Hg] eCW3 ([facility]) Systolic blood 129 mm[Hg] 129 mm[Hg] eCW3 ([facility]) Body temperature 98.2 [degF] 98.2 [degF] eCW3 ( [facility]) Heart rate 18 /min 18 /min eCW3 ([facility]) Body mass index 17.94 kg/m2 17.94 kg/m2 eCW3 ([place] [facility] (BMI) [Ratio] [facility]) Body weight 136 [lb_av] 136 [lb_av] eCW3 ([facility]) Body height [in_i] eCW3 ([facility]) Diastolic blood 67 mm[Hg] 67 mm[Hg] eCW3 ([facility]) Systolic blood 114 mm[Hg] 114 mm[Hg] eCW3 ([facility]) Body temperature 97.9 [degF] 97.9 [degF] eCW3 ( [facility]) Heart rate 18 /min 18 /min eCW3 ([facility]) Body mass index 17.28 kg/m2 17.28 kg/m2 eCW3 ([facility] (BMI) [Ratio] [facility]) Body weight 131 [lb_av] 131 [lb_av] eCW3 ([facility]) Body height [in_i] eCW3 ([facility]) Diastolic blood 77 mm[Hg] 77 mm[Hg] eCW3 ([facility]) Systolic blood 127 mm[Hg] 127 mm[Hg] eCW3 ([facility]) Body temperature 97.9 [degF] 97.9 [degF] eCW3 ( [facility]) Heart rate 18 /min 18 /min eCW3 ([facility]) Body mass index 17.83 kg/m2 17.83 kg/m2 eCW3 ([facility] (BMI) [Ratio] [facility]) Body weight [lb_av] eCW3 ([facility]) Body height [in_i] eCW3 ([facility]) Diastolic blood 82 mm[Hg] 82 mm[Hg] eCW3 ([facility]) Systolic blood 133 mm[Hg] 133 mm[Hg] eCW3 ([facility]) Body temperature 98.3 [degF] 98.3 [degF] eCW3 ( [facility]) Heart rate 18 /min 18 /min eCW3 ([facility]) Body mass index 17.41 kg/m2 17.41 kg/m2 eCW3 ([facility] (BMI) [Ratio] [facility]) Body weight 132 [lb_av] 132 [lb_av] eCW3 ([facility]) Body height [in_i] eCW3 ([facility]) Diastolic blood 95 mm[Hg] 95 mm[Hg] eCW3 ([facility]) Systolic blood 151 mm[Hg] 151 mm[Hg] eCW3 ([facility]) Body temperature 98.3 [degF] 98.3 [degF] eCW3 ( [facility]) Heart rate 18 /min 18 /min eCW3 ([facility]) Body mass index 17.41 kg/m2 17.41 kg/m2 eCW3 ([facility] (BMI) [Ratio] [facility]) Body weight 132 [lb_av] 132 [lb_av] eCW3 ([facility]) Body height [in_i] eCW3 ([facility]) Patient Treatment Plan of Care Planned Activity Planned Date Details Description Data Source (s) STACY [id number] 03/22/2019 12:00:00 eCW3 ([facility]) SYMTUZA [phone] 03/22/2019 12:00:00 eCW3 ([facility]) XIOMARATUZA [phone] 03/22/2019 12:00:00 eCW3 ([facility]) SYMTUZA [phone] 03/22/2019 12:00:00 eCW3 ([facility])
--- NOTE | 2020-02-28 15:48 | BHS.RME ---
2019 N Coronavirus Screen - COVID-19 Screening Questions Dx of COVID-19 or had a positive test in the last 4 weeks?: No Contact with known/suspected COVID patient in last 14 days?: No Any of these symptoms or contact with someone who has?: None Traveled domestically/internationally in the last 14 days?: No Screen score: 0 Screen result: Further Evaluation Substance Use & Tx History - Substance Use History Alcohol Substance amount: 1.5 pints rum Frequency of use: Daily Substance route: Oral Date of Last Use: 02/28/20 (started age 14) Cocaine- Powder Substance amount: $10 Frequency of use: Less than 3 times per week Substance route: Smoking Date of Last Use: 02/23/20 (started age 33) Nicotine Substance amount: 3 ciggs Frequency of use: Daily Substance route: Smoking Date of Last Use: 02/28/20 (started age 15) - Last Treatment Date of last treatment: 09/10/15-09/16/15 completed Treatment type: Substance Use Disorder ([facility]) Where was last treatment: Detox Physical/Psych/Mental Status - Behavior General Behavior: Increased activity (restlessness, agitation) Eye Contact: Normal - Cooperativeness Cooperativeness: Cooperative - Thinking Thought Processes: Tight, Logical, Goal Directed - Physical Health Problems Is patient presently having any pain?: No Does patient presently have any injuries (include location): No Does patient currently have a fever: No Is patient : No CIWA Nausea/Vomitin Muscle Tremors: 3 Anxiety: 3 Agitation: 2 Paroxysmal Sweats: 2 Orientation: 0-Oriented Tacttile Disturbances: 0-None Auditory Disturbances: 0-None Visual Disturbances: 0-None Headache: 0-None Present CIWA-Ar Total Score: 12
[2020-02-28 17:22] VITALS: BMI 18.8
--- NOTE | 2020-02-28 17:44 | HP ---
CIWA Score Nausea/Vomitin-No Nausea/No Vomiting Muscle Tremors: None Anxiety: 1-Mildly Anxious Agitation: 1-Slight > Activity Paroxysmal Sweats: No Perspiration Orientation: 0-Oriented Tacttile Disturbances: 0-None Auditory Disturbances: 0-None Visual Disturbances: 0-None Headache: 0-None Present CIWA-Ar Total Score: 2 - Admission Criteria [facility]ASAS Guidelines: Admission for Medically Managed Detox: Requires at least one of the followin. CIWA greater than 12 2. Seizures within the past 24 hours 3. Delirium tremens within the past 24 hours 4. Hallucinations within the past 24 hours 5. Acute intervention needed for co occurring medical disorder 6. Acute intervention needed for co occurring psychiatric disorder 7. Severe withdrawal that cannot be handled at a lower level of care (continued vomiting, continued diarrhea, abnormal vital signs) requiring intravenous medication and/or fluids 8. Admitting History and Physical - Smoking History Smoking history: Current every day smoker Have you smoked in the past 12 months: Yes Aproximately how many cigarettes per day: 3 - Alcohol/Substance Use Hx Alcohol Use: Yes Admission ROS [facility] Allergies/Adverse Reactions: Allergies Allergy/AdvReac Type Severity Reaction Status Date / Time No Known Allergies Allergy Verified 02/28/20 18:06 History of Present Illness: 64 y.o. male requesting detox from alcohol use , claims he drinks 1.5 pints Bacardi /day , relapsed 7 months ago , latest use this morning , denies seizures, blackouts , occasional tremors if not drinking . cocaine : occasional tobacco : 3 x/day PMHX : HTN , DM , HIV since 1993 , multiple CVA's PSHX : R KNEE SX FROM FX , TENDON REPAIR L HAND IN psych : anxiety, depression on Seroquel Exam Limitations: No Limitations, Clinical Condition - Review of Systems Constitutional: No Symptoms Reported EENT: reports: Other (glasses - reading , upper dentures) Respiratory: reports: No Symptoms reported Cardiac: reports: No Symptoms Reported GI: reports: No Symptoms Reported : reports: No Symptoms Reported Musculoskeletal: reports: No Symptoms Reported Integumentary: reports: No Symptoms Reported Neuro: reports: See HPI, Pre-Existing Deficit (left-sided weakness), Unsteady Gait (due to pre-existing deficit) Endocrine: reports: See HPI Hematology: reports: No Symptoms Reported Psychiatric: reports: Orientated x3 Patient History - Patient Medical History Hx Anemia: No Hx Asthma: No Hx Chronic Obstructive Pulmonary Disease (COPD): No Hx Cancer: No Hx Cardiac Disorders: No Hx Congestive Heart Failure: No Hx Hypertension: Yes (on med) Hx Hypercholesterolemia: No Hx Pacemaker: No HX Cerebrovascular Accident: Yes (old cva with left hemiparesis) Hx Seizures: No Hx Dementia: No Hx Diabetes: No Hx Gastrointestinal Disorders: No Hx Liver Disease: No Hx Genitourinary Disorders: No Hx Sexually Transmitted Disorders: No Hx Renal Disease (ESRD): No Hx Thyroid Disease: No Hx Human Immunodeficiency Virus (HIV): Yes Hx Hepatitis C: No Hx Depression: Yes (no med) Hx Suicide Attempt: No Hx Schizophrenia: No - Patient Surgical History Past Surgical History: Yes Hx Neurologic Surgery: No Hx Cataract Extraction: No Hx Cardiac Surgery: No Hx Lung Surgery: No Hx Breast Surgery: No Hx Breast Biopsy: No Hx Abdominal Surgery: No Hx Appendectomy: No Hx Cholecystectomy: No Hx Genitourinary Surgery: No Hx Section: No Hx Orthopedic Surgery: Yes (R KNEE SX FROM FX ) Other Surgical History: TENDON REPAIR L HAND IN Anesthesia Reaction: No - PPD History Date: 09/13/15 - Smoking Cessation Smoking history: Current every day smoker Have you smoked in the past 12 months: Yes Aproximately how many cigarettes per day: 3 Hx Chewing Tobacco Use: No Initiated information on smoking cessation: Yes 'Breaking Loose' booklet given: 02/28/20 Admission Physical Exam [facility] - Vital Signs Vital Signs: Vital Signs - 24 hr 02/28/20 17:21 Temperature 97.7 F Pulse Rate 95 H Respiratory 19 Rate Blood Pressure 128/73 - Physical General Appearance: Yes: Mild Distress HEENTM: Yes: EOMI, Hearing grossly Normal, Normocephalic, Muffled/Hoarse Voice Respiratory: Yes: Chest Non-Tender, Lungs Clear, Normal Breath Sounds, No Respiratory Distress, No Accessory Muscle Use Neck: Yes: No masses,lesions,Nodules, Trachea in good position Cardiology: Yes: Regular Rhythm, Regular Rate, S1, S2 Abdominal: Yes: Non Tender, Flat, Soft Back: Yes: Normal Inspection Musculoskeletal: Yes: Muscle weakness (left-sided 2/2 prior CVA), Other (unsteady gait , using walker for ambulation) Extremities: Yes: Non-Tender, Other (LEFT LE weakness, limping left) Neurological: Yes: Fully Oriented, Alert, Other (strength 4/5 LLE) Integumentary: Yes: Warm - Diagnostic (1) Alcohol use disorder Current Visit: Yes Status: Chronic Breathalyzer - Breathalyzer Breathalyzer: 0 Urine Drug Screen - Test Device Lot number: [id number] Expiration date: 08/21/21 - Control Is test valid?: Yes - Results Drug screen NEGATIVE: No Urine drug screen results: [facility]-Cocaine Inpatient Rehab Admission - Rehab Decision to Admit Inpatient rehab admission?: No
[2020-02-28] MEDS ORDERED: ONDANSETRON *ODT* 4 MG TABLET SL PRN (18:18)
[2020-02-28] MEDS ORDERED: ACETAMINOPHEN 325 MG TABLET (FP) PO PRN ×2 (18:18)
[2020-02-28] MEDS ORDERED: BISMUTH SUBSALICYLATE 524 MG/30 ML UD PO PRN (18:18)
[2020-02-28] MEDS ORDERED: MAG HYDROX/AL HYDROX/SIMETH 30 ML UNIT-DOSE CUP PO PRN (18:18)
[2020-02-28] MEDS ORDERED: MAGNESIUM HYDROX 2400MG/30ML ORAL SUSPENSION 30 ML CUP PO PRN (18:18)
[2020-02-28] MEDS ORDERED: IBUPROFEN 400 MG TABLET (FP) PO PRN (18:18)
[2020-02-28] MEDS ORDERED: MENTHOL/PHENOL 1 EACH UD MM PRN (18:18)
[2020-02-28] MEDS ORDERED: MAGNESIUM CITRATE 300 ML BOTTLE PO PRN (18:18)
[2020-02-28] MEDS ORDERED: diazePAM 5 MG TABLET PO PRN (18:23)
--- OUTSIDE RECORDS SUMMARY | 2020-02-28 18:42 | XMS ---
:1955 Author Organization [facility] Support Name Relationship Address Phone UE Unavailable Unavailable Unavailable CLIFF SCOTT NIECE [address] [place] [address] cliff dempsey Unavailable Unavailable Unavailable Liz[place], [place] Re-disclosure Warning The records that [...] is protected by Article 27-F of the [facility] Public Health law. If you continue you may haveaccess to information: Regarding HIV / AIDS; Provided by facilities licensed or operated by the [facility] Office of Mental Health; or Provided by the [facility] Office for People With Developmental Disabilities. If such information is present, then the following [facility] mandated warning applies: This information [...] law may result in a fine or detention sentence or both. A general authorization for the release of medical or other information is NOT sufficient authorization for further disclosure. Encounters Encounter Providers Location Date Indications Data Source(s ) (DentTx) Dental [place] [facility] 04/03/2019 eCW3 ([facility] A28 12:00:00 AM [facility] EST - Care) 04/03/2019 12:00:00 AM EST Outpatient [facility] 03/22/2019 eCW3 ([facility] 12:00:00 AM [facility] EST - Care) 03/22/2019 12:00:00 AM EST (DentTx) Dental [facility] 03/20/2019 eCW3 ([facility] A28 12:00:00 AM [facility] EST - Care) 03/20/2019 12:00:00 AM EST Outpatient [facility] 03/08/2019 eCW3 ([facility] 12:00:00 AM [facility] EDT - Care) 03/08/2019 12:00:00 AM EDT (DentTx) Dental [facility] 03/06/2019 eCW3 ([facility] A28 12:00:00 AM [facility] EDT - Care) 03/06/2019 12:00:00 AM EDT Outpatient [facility] 02/22/2019 eCW3 ([facility] 12:00:00 AM [facility] EDT - Care) 02/22/2019 12:00:00 AM EDT (DentTx) Dental [facility] 02/20/2019 eCW3 ([facility]28 12:00:00 AM [facility] EDT - Care) 02/20/2019 12:00:00 AM EDT Outpatient [facility] 02/07/2019 eCW3 ([facility] 12:00:00 AM [facility] EDT - Care) 02/07/2019 12:00:00 AM EDT Outpatient [place] [facility] 01/31/2019 eCW3 ([facility] 12:00:00 AM [facility] EDT - Care) 01/31/2019 12:00:00 AM EDT (DentTx) Dental [facility] 01/30/2019 eCW3 ([facility]28 12:00:00 AM [facility] EDT - Care) 01/30/2019 12:00:00 AM EDT Outpatient [facility] 01/10/2019 eCW3 ([facility] 12:00:00 AM [facility] EDT - Care) 01/10/2019 12:00:00 AM EDT Immunizations Vaccine Date Status Description Data Source(s) New in 2011. IIV4 02/22/2019 11:08:00 completed eC W3 ([facility]) New in 2011. IIV4 02/22/2019 11:08:00 completed eC W3 ([facility]) New in 2011. IIV4 02/22/2019 11:08:00 completed eC W3 ([facility]) New in 2011. IIV4 02/22/2019 11:08:00 completed eC W3 ([facility]) New in 2011. IIV4 02/22/2019 11:08:00 completed eC W3 ([facility]) New in 2011. IIV4 02/22/2019 11:08:00 completed eC W3 ([facility]) New in 2011. IIV4 02/22/2019 11:08:00 completed eC W3 ([facility]) New in 2011. IIV4 02/22/2019 11:08:00 completed eC W3 ([facility]) New in 2011. IIV4 02/22/2019 11:08:00 completed eC W3 ([facility]) New in 2011. IIV4 02/22/2019 11:08:00 completed eC W3 ([facility]) Medications Medication Brand Start Product Dose Route Administrative Pharmacy [facility] Indications Reaction Description Data Name Date Form Instructions Instructions Source(s) Glucerna - Glucer 03/13/ 300.0 active Glucern a - eCW3 na - 2020 {ml} ([place] 12:00: [facility] 00 [facility] EDT Care) Glucerna - Glucer 03/13/ 300.0 active Glucern a - eCW3 na - 2020 {ml} ([place] 12:00: [facility] 00 [facility] EDT Care) Glucerna - Glucer 03/13/ 300.0 active Glucern a - eCW3 na - 2020 {ml} ([place] 12:00: [facility] 00 [facility] EDT Care) [...] n Tablet 400 MG 12:00: [facility]) Ibuprofen Ibupro 05/25/ active Ibuprofen eCW3 400 MG Oral fen 2020 400 MG ([place] Tablet 400 MG 12:00: [facility]) Ibuprofen Ibupro 05/25/ active Ibuprofen eCW3 400 MG Oral fen 2020 400 MG ([place] Tablet 400 MG 12:00: [facility]) Ibuprofen Ibupro 05/25/ active Ibuprofen eCW3 400 MG Oral fen 2020 400 MG ([place] Tablet 400 MG 12:00: [facility]) Ibuprofen Ibupro 05/25/ active Ibuprofen eCW3 400 MG Oral fen 2020 400 MG ([place] Tablet 400 MG 12:: [facility]) Ibuprofen Ibupro 05/25/ active Ibuprofen eCW3 400 MG Oral fen 2020 400 MG ([place] [facility] Ibuprofen Ibupro 05/25/ active Ibuprofen eCW3 400 MG Oral fen 2020 400 MG ([place] Tablet 400 MG 12:: [facility]) Ibuprofen Ibupro 05/25/ active Ibuprofen eCW3 400 MG Oral fen 2020 400 MG ([place] Tablet 400 MG 12:00: [facility]) Ibuprofen Ibupro 05/25/ active Ibuprofen eCW3 400 MG Oral fen 2020 400 MG ([place] Tablet 400 MG 12:[facility]: [facility]) Ibuprofen Ibupro 05/25/ active Ibuprofen eCW3 400 MG Oral fen 2020 400 MG ([place] Tablet 400 MG 12:00: [facility]) Ibuprofen Ibupro 05/25/ active Ibuprofen eCW3 400 MG Oral fen 2020 400 MG ([place] Tablet 400 MG 12:00: [facility]) Ibuprofen Ibupro 05/25/ active Ibuprofen eCW3 400 MG Oral fen 2020 400 MG ([place] Tablet 400 MG 12:00: [facility]) Ibuprofen Ibupro 05/25/ active Ibuprofen eCW3 400 MG Oral fen 2020 400 MG ([place] Tablet 400 MG 12:00: [facility]) Ibuprofen Ibupro 05/25/ active Ibuprofen eCW3 400 MG Oral fen 2020 400 MG ([place] Tablet 400 MG 12:00: [facility] EST Care) Ibuprofen Ibupro 05/25/ active Ibuprofen eCW3 400 MG Oral fen 2020 400 MG ([place] Tablet 400 MG 12:00: [facility] 00 AM [facility] EST Care) Ibuprofen Ibupro 05/25/ active Ibuprofen [...] SYMTUZA eCW 3 800-150-200 A 2018 {tabl [phone]- ([place] -10 MG 800-15 12:00: et_wi 10 MG [place] 0-200- 00 AM th_fo Health 10 MG EST od} Care) SYMTUZA SYMTUZ .0 active SYMTUZA eCW 3 800-150-200 A 2018 {tabl [phone]- ([place] -10 MG 800-15 12:00: et_wi 10 MG [place] 0-200- 00 AM [facility] Health 10 MG EST od} Care) SYMTUZA SYMTUZ .0 active SYMTUZA eCW 3 800-150-200 A 2019 {tabl [phone]- ([place] -10 MG 800-15 12:00: et_wi 10 MG [facility] 0-200- 00 AM [facility] 10 MG EST od} Care) SYMTUZA SYMTUZ .0 active SYMTUZA eCW 3 800-150-200 A 2019 {tabl [phone]- ([place] -10 MG 800-15 12:00: et_wi 10 MG [facility] 0-200- 00 AM [facility] 10 MG EST od} Care) SYMTUZA SYMTUZ .0 active SYMTUZA eCW 3 800-150-200 A 2019 {tabl [phone]- ([place] -10 MG 800-15 12:00: et_wi 10 MG [facility] 0-200- 00 AM [facility] 10 MG EST od} Care) SYMTUZA SYMTUZ .0 active SYMTUZA eCW 3 800-150-200 A 2019 {tabl [phone]- ([place] -10 MG 800-15 12:00: et_wi 10 MG [place] 0-200- 00 AM [facility] 10 MG EST od} Care) SYMTUZA SYMTUZ .0 active SYMTUZA eCW 3 800-150-200 A 2019 {tabl [phone]- ([place] -10 MG 800-15 12:00: et_wi 10 MG [place] 0-200- 00 AM [facility] 10 MG EST od} Care) SYMTUZA SYMTUZ .0 active SYMTUZA eCW 3 800-150-200 A 2019 {tabl [phone]- ([place] -10 MG 800-15 12:00: et_wi 10 MG [place] 0-200- 00 AM [facility] 10 MG EST od} Care) SYMTUZA SYMTUZ .0 active SYMTUZA eCW 3 800-150-200 A 2019 {tabl [phone]- ([place] -10 MG 800-15 12:00: et_wi 10 MG [facility] 0-200- 00 AM [facility] 10 MG EST od} Care) SYMTUZA SYMTUZ .0 active SYMTUZA eCW 3 800-150-200 A 2019 {tabl [phone]- ([place] -10 MG 800-15 12:00: et_wi 10 MG [facility] 0-200- 00 AM [facility] 10 MG EST od} Care) SYMTUZA SYMTUZ .0 active SYMTUZA eCW 3 800-150-200 A 2019 {tabl [phone]- ([place] -10 MG 800-15 12:00: et_wi 10 MG [place] 0-200- 00 AM [facility] 10 MG EST od} Care) SYMTUZA SYMTUZ .0 active SYMTUZA eCW 3 800-150-200 A 2019 {tabl [phone]- ([place] -10 MG 800-15 12:00: et_wi 10 MG [facility] 0-200- 00 AM [facility] 10 MG EST od} Care) SYMTUZA SYMTUZ .0 active SYMTUZA eCW 3 800-150-200 A 2019 {tabl [phone]- ([place] -10 MG 800-15 12:00: et_wi 10 MG [facility] 0-200- 00 AM [facility] 10 MG EST od} Care) SYMTUZA SYMTUZ .0 active SYMTUZA eCW 3 800-150-200 A 2019 {tabl [phone]- ([place] -10 MG 800-15 12:00: et_wi 10 MG [facility] 0-200- 00 AM [facility] 10 MG EST od} Care) SYMTUZA SYMTUZ .0 active SYMTUZA eCW 3 800-150-200 A 2019 {tabl [phone]- ([place] -10 MG 800-15 12:00: et_wi 10 MG [facility] 0-200- 00 AM [facility] 10 MG EST od} Care) SYMTUZA SYMTUZ .0 active SYMTUZA eCW 3 800-150-200 A 2019 {tabl [phone]- ([place] -10 MG 800-15 12:00: et_wi 10 MG [facility] 0-200- 00 AM [facility] 10 MG EST od} Care) SYMTUZA SYMTUZ .0 active SYMTUZA eCW 3 800-150-200 A 2019 {tabl [phone]- ([place] -10 MG 800-15 12:00: et_wi 10 MG [place] 0-200- 00 AM [facility] 10 MG EST od} Care) SYMTUZA SYMTUZ .0 active SYMTUZA eCW 3 800-150-200 A 2019 {tabl [phone]- ([place] -10 MG 800-15 12:00: et_wi 10 MG [place] 0-200- 00 AM [facility] 10 MG EST od} Care) SYMTUZA SYMTUZ .0 active SYMTUZA eCW 3 800-150-200 A 2019 {tabl [phone]- ([place] -10 MG 800-15 12:00: et_wi 10 MG [facility] 0-200- 00 AM [facility] 10 MG EST od} Care) SYMTUZA SYMTUZ .0 active SYMTUZA eCW 3 800-150-200 A 2019 {tabl [phone]- ([place] -10 MG 800-15 12:00: et_wi 10 MG [facility] 0-200- 00 AM [facility] 10 MG EST od} Care) SYMTUZA SYMTUZ .0 active SYMTUZA eCW 3 800-150-200 A 2019 {tabl [phone]- ([place] -10 MG 800-15 12:00: et_wi 10 MG [facility] 0-200- 00 AM [facility] 10 MG EST od} Care) SYMTUZA SYMTUZ .0 active SYMTUZA eCW 3 800-150-200 A 2019 {tabl [phone]- ([place] -10 MG 800-15 12:00: et_wi 10 MG [place] 0-200- 00 AM [facility] 10 MG EST od} Care) SYMTUZA SYMTUZ .0 active SYMTUZA eCW 3 800-150-200 A 2019 {tabl [phone]- ([place] -10 MG 800-15 12:00: et_wi 10 [...] GLUCOMETE R eCW3 NA 2019 ed NA ([place] 12:00: [facility] 00 AM Health EDT Care) [...] Pen Touch 2019 Safety Pen ([facility] 29G Safety 12:00: [place] 2 9G [place] X 5MM Pen 00 [...] Pen Touch 2019 Safety Pen ([facility] [place] 29[place] Safety 12:00: [place] 2 9G [place] X 5MM Pen 00 [...] Pen Touch 2019 Safety Pen ([facility] [place] 29G Safety 12:00: [place] 2 9G [place] X 5MM Pen 00 [...] Pen Touch 2019 Safety Pen ([facility] [place] 29G Safety 12:00: [place] 2 9G [place] X 5MM Pen 00 [...] Pen Touch 2019 Safety Pen ([facility] [place] 29[place] Safety 12:00: [place] 2 9G [place] X 5MM Pen 00 [...] Pen Touch 2019 Safety Pen ([facility] [place] 29G Safety 12:00: [place] 2 9G [place] X 5MM Pen 00 [...] Pen Touch 2019 Safety Pen ([facility] [place] 29G Safety 12:00: [place] 2 9G [facility] X 5MM Pen 00 [...] Pen Touch 2019 Safety Pen ([facility] [place] 29[place] Safety 12:00: [place] 2 9G [facility] X 5MM Pen 00 AM X 5MM [facility] EDT Care) s 29G X 5MM Glucose UNK 01/31/ active Glucose Test eCW3 Test Strips 2019 Strips ([place] Compatiable 12:00: Compatiable [facility] with 00 AM with Health Patients EDT Patients Care) Machine Machine Easy Touch Easy 01/31/ active Easy Touch eCW3 Safety Pen Touch 2019 Safety Pen ([facility] [place] 29[place] Safety 12:00: [place] 2 9G [facility] X 5MM Pen 00 [...] Pen Touch 2019 Safety Pen ([facility] [place] 29[place] Safety 12:00: [place] 2 9G [place] X 5MM Pen 00 [...] Pen Touch 2019 Safety Pen ([facility] [place] 29[place] Safety 12:00: [place] 2 9G [place] X 5MM Pen 00 [...] Pen Touch 2019 Safety Pen ([facility] [place] 29[place] Safety 12:00: [place] 2 9G [place] X 5MM Pen 00 [...] Pen Touch 2019 Safety Pen ([facility] [place] 29[place] Safety 12:00: [place] 2 9G [facility] X 5MM Pen 00 AM X 5MM [facility] EDT Care) s 29G X 5MM Easy Touch Easy 01/31/ active Easy Touch eCW3 Safety Pen Touch 2019 Safety Pen ([facility] [place] 29[place] Safety 12:00: [place] 2 9G [place] X 5MM Pen 00 [...] Pen Touch 2019 Safety Pen ([facility] [place] 29[place] Safety 12:00: [place] 2 9G [place] X 5MM Pen 00 [...] Pen Touch 2019 Safety Pen ([facility] [place] 29G Safety 12:00: [place] 2 9G [place] X 5MM Pen 00 AM X 5MM [facility] EDT Care) s 29G X 5MM Easy Touch Easy 01/31/ active Easy Touch eCW3 Safety Pen Touch 2019 Safety Pen ([facility] [place] 29G Safety 12:00: [place] 2 9G [place] X 5MM Pen 00 [...] Pen Touch 2019 Safety Pen ([facility] [place] 29[place] Safety 12:00: [place] 2 9G [place] X 5MM Pen 00 [...] Pen Touch 2019 Safety Pen ([facility] [place] 29[place] Safety 12:00: [place] 2 9G [place] X 5MM Pen 00 AM X 5MM [facility] EDT Care) s 29G X 5MM Easy Touch Easy 01/31/ active Easy Touch eCW3 Safety Pen Touch 2019 Safety Pen ([facility] [place] 29G Safety 12:00: [place] 2 9G [facility] X 5MM Pen 00 [...] Pen Touch 2019 Safety Pen ([facility] [place] 29[place] Safety 12:00: [place] 2 9G [place] X 5MM Pen 00 [...] Pen Touch 2019 Safety Pen ([facility] [place] 29G Safety 12:00: [place] 2 9G [place] X 5MM Pen 00 [...] Pen Touch 2019 Safety Pen ([facility] [place] 29[place] Safety 12:00: [place] 2 9G [place] X 5MM Pen 00 AM X 5MM [facility] EDT Care) s 29G X 5MM Easy Touch Easy 01/31/ active Easy Touch eCW3 Safety Pen Touch 2019 Safety Pen ([facility] [place] 29G Safety 12:00: [place] 2 9G [facility] X 5MM Pen 00 [...] et_wi mg [facility] 500 mg 00 AM [facility] _[facility] } MetFORMIN MetFOR 2.0 active MetFORMIN eCW3 HCl ER 500 MIN 2019 {tabl HCl ER 500 ([facility] mg HCl ER 12:00: et_wi mg [place] 500 mg 00 AM [facility] EDT [facility]) _meal } MetFORMIN MetFOR 2.0 active MetFORMIN eCW3 HCl ER 500 MIN 2018 {tabl HCl ER 500 ([facility] mg HCl ER 12:00: et_wi mg [place] 500 mg 00 AM [facility] EDT [facility]) _meal } MetFORMIN MetFOR 2.0 active MetFORMIN eCW3 HCl ER 500 MIN 2018 {tabl HCl ER 500 ([facility] mg HCl ER 12:00: et_wi mg [place] 500 mg 00 AM [facility] EDT [facility]) _meal } MetFORMIN MetFOR 2.0 active MetFORMIN eCW3 HCl ER 500 MIN 2018 {tabl HCl ER 500 ([facility] mg HCl ER 12:00: et_wi mg [place] 500 mg 00 AM [facility] EDT [facility]) _meal } MetFORMIN MetFOR 2.0 active MetFORMIN eCW3 HCl ER 500 MIN 2019 {tabl HCl ER 500 ([facility] mg HCl ER 12:00: et_wi mg [place] 500 mg 00 AM [facility] EDT [facility]) _meal } MetFORMIN MetFOR 2.0 active MetFORMIN eCW3 HCl ER 500 MIN 2019 {tabl HCl ER 500 ([facility] mg HCl ER 12:00: et_wi mg [place] 500 mg 00 AM [facility] _meal } MetFORMIN MetFOR 2.0 active MetFORMIN eCW3 HCl ER 500 MIN 2019 {tabl HCl ER 500 ([facility] mg HCl ER 12:00: et_wi mg [place] 500 mg 00 AM [facility] EDT [facility]) _meal } MetFORMIN MetFOR 2.0 active MetFORMIN eCW3 HCl ER 500 MIN 2019 {tabl HCl ER 500 ([facility] mg HCl ER 12:00: et_wi mg [place] 500 mg 00 AM [facility] EDT [facility]) _meal } MetFORMIN MetFOR .0 active MetFORMIN eCW3 HCl ER 500 MIN 2019 {tabl HCl ER 500 ([facility] mg HCl ER 12:00: et_wi mg [place] 500 mg 00 AM [facility] EDT [facility]) _meal } MetFORMIN MetFOR .0 active MetFORMIN eCW3 HCl ER 500 MIN 2019 {tabl HCl ER 500 ([facility] mg HCl ER 12:00: et_wi mg [place] 500 mg 00 AM [facility] EDT [facility]) _meal } MetFORMIN MetFOR .0 active MetFORMIN eCW3 HCl ER 500 MIN 2018 {tabl HCl ER 500 ([facility] mg HCl ER 12:00: et_wi mg [place] 500 mg 00 AM [facility] EDT [facility]) _meal } MetFORMIN MetFOR .0 active MetFORMIN eCW3 HCl ER 500 MIN 2018 {tabl HCl ER 500 ([facility] mg HCl ER 12:00: et_wi mg [place] 500 mg 00 AM [facility] EDT [facility]) _meal } MetFORMIN MetFOR .0 active MetFORMIN eCW3 HCl ER 500 MIN 2018 {tabl HCl ER 500 ([facility] mg HCl ER 12:00: et_wi mg [place] 500 mg 00 AM [facility] EDT [facility]) _meal } MetFORMIN MetFOR .0 active MetFORMIN eCW3 HCl ER 500 MIN 2018 {tabl HCl ER 500 ([facility] mg HCl ER 12:00: et_wi mg [place] 500 mg 00 AM [facility] EDT [facility]) _meal } MetFORMIN MetFOR .0 active MetFORMIN eCW3 HCl ER 500 MIN 2019 {tabl HCl ER 500 ([facility] mg HCl ER 12:00: et_wi mg [place] 500 mg 00 AM [facility] _meal } MetFORMIN MetFOR .0 active MetFORMIN eCW3 HCl ER 500 MIN 2019 {tabl HCl ER 500 ([facility] mg HCl ER 12:00: et_wi mg [place] 500 mg 00 AM [facility] _meal } 24 HR MetFOR 2.0 [...] name Policy type Policy ID Covered Covered democrat's Policy P yann / Coverage democrat ID relationship to Perez Inf ormation type perez MEDICARE [id number] SP [id number] 50 0 MEDICAID [id number] SP [id number] MEDICARE [id number] SP [id number] 50 0 Problems, Conditions, and Diagnoses Code Display Name Description Problem Type Effective Data Sour ce(s) Dates M20.41 Other hammer toe(s) Other hammer Problem 06/27/2019 eCW 3 ([place] (acquired), right toe(s) (acquired), 12:00:00 A M [facility] foot right foot EST Care) M20.42 Other hammer toe(s) Other hammer Problem 06/27/2019 eCW 3 ([place] (acquired), left toe(s) (acquired), 12:00:00 AM [facility] foot left foot EST Care) R26.9 Gait abnormality Gait abnormality Problem 06/27/2019 eC W3 ([place] 12:00:00 AM [facility] EST Care) R26.89 Unstable balance Unstable balance Problem 06/27/2019 eC W3 ([place] 12:00:00 AM [facility] EST Care) M20.11 Hallux valgus Hallux valgus Problem 06/27/2019 eCW3 ([place] (acquired), right (acquired), right 12:00:00 AM [facility] foot foot EST Care) M20.12 Hallux valgus Hallux valgus Problem 06/27/2019 eCW3 ([place] (acquired), left (acquired), left 12:00:00 AM [facility] foot foot EST Care) E11.9 Diabetes mellitus Diabetes mellitus Problem 06/27/2019 eCW3 ([place] type 2, noninsulin type 2, noninsulin 12:00:[address] [facility] dependent dependent EST Care) K08.101 Complete Complete Problem 03/06/2019 eCW3 ([place] edentulism, class I edentulism, class 12:00:[address] [facility] I EDT Care) Z79.4 penitentiary current penitentiary current Problem 01/31/2019 eCW3 ([place] use of insulin use of insulin 12:00:[address] [facility] EDT Care) E11.9 Type 2 diabetes Type 2 diabetes Problem 01/31/2019 eCW3 ([place] mellitus without mellitus without 12:00:00 AM [facility] complications complications EDT Care) Z79.4 penitentiary current penitentiary current Problem 01/31/2019 eCW3 ([place] use of insulin use of insulin 12:00:[address] [facility] EDT Care) K00.0 Edentulism Edentulism Problem 01/30/2019 eCW3 ([place] 12:00:[address] [facility] EDT Care) E11.9 Type 2 diabetes Type 2 diabetes Problem 01/12/2019 eCW3 ([place] mellitus without mellitus without 12:00:00 AM [facility] complication, complication, EDT Care) without long-term without long-term current use of current use of insulin insulin E11.9 Type 2 diabetes Type 2 diabetes Problem 01/12/2019 eCW3 ([place] mellitus without mellitus without 12:00:00 AM [facility] complication, complication, EDT Care) without long-term without long-term current use of current use of insulin insulin Surgeries/Procedures Procedure Description Date Indications Data Source(s) Injection, insulin, 01/31/2019 eCW3 ([place]et muñoz [place] per 5 units 12:00:00 AM [facility] Health Care) Results ID Date Data Source [id number] 10/02/2019 12:00:00 AM EDT [facility] Name Value Range Interpretation Code Description Data Jennifer rce(s) Supporting Document(s ) 2019-nCoV [facility] RNA XXX KRYSTAL+probe- Imp This lab was ordered by [employer] and reported by [employer]. Procedure Social History Code Duration Value Status [...] Smoker eCW3 ( [place] 12:00:00 AM ED Health Ca re) Smoking 10/12/2019 Current Smoker completed Current Smoker eCW3 ( [place] 12:00:00 AM [facility] Health Ut re) Smoking 10/12/2019 Current Smoker completed Current Smoker eCW3 ( [place] 12:00:00 AM [facility] Health Ut re) Smoking 08/07/2019 Current Smoker completed Current Smoker eCW3 ( [place] 12:00:00 AM [facility] Health Ut re) Smoking 08/07/2019 Current Smoker completed Current Smoker eCW3 ( [place] 12:00:00 AM ED Health Ca re) Smoking 08/07/2019 Current Smoker completed Current Smoker eCW3 ( [place] 12:00:00 AM [facility] Health Ut re) Smoking 08/07/2019 Current Smoker completed Current Smoker eCW3 ( [place] 12:00:00 AM [facility] re) Smoking 02/22/2019 Current Smoker completed Current Smoker eCW3 ( [place] 12:00:00 AM [facility] Health Ut re) Vital Signs ID Date Data Source UNK Name Value Range Interpretation Code Description Data Source(s) Diastolic blood 62 mm[Hg] 62 mm[Hg] eCW3 ([facility]) Systolic blood 115 mm[Hg] 115 mm[Hg] eCW3 ([facility]) Body temperature 98.4 [degF] 98.4 [degF] eCW3 ( [facility]) Heart rate 18 /min 18 /min eCW3 ([facility]) Body mass index 17.73 kg/m2 17.73 kg/m2 eCW3 ([facility] (BMI) [Ratio] [facility]) Body weight [lb_av] eCW3 ([facility]) Body height [in_i] eCW3 ([facility]) Diastolic blood 75 mm[Hg] 75 mm[Hg] eCW3 ([facility]) Systolic blood 129 mm[Hg] 129 mm[Hg] eCW3 ([facility]) Body temperature 98.2 [degF] 98.2 [degF] eCW3 ( [facility]) Heart rate 18 /min 18 /min eCW3 ([facility]) Body mass index 17.94 kg/m2 17.94 kg/m2 eCW3 ([facility] (BMI) [Ratio] [facility]) Body weight 136 [lb_av] 136 [lb_av] eCW3 ([facility]) Body height [in_i] eCW3 ([facility]) Diastolic blood 67 mm[Hg] 67 mm[Hg] eCW3 ([facility]) Systolic blood 114 mm[Hg] 114 mm[Hg] eCW3 ([facility]) Body temperature 97.9 [degF] 97.9 [degF] eCW3 ( [facility]) Heart rate 18 /min 18 /min eCW3 ([facility]) Body mass index 17.28 kg/m2 17.28 kg/m2 eCW3 ([facility] (BMI) [Ratio] [facility]) Body weight 131 [lb_av] 131 [lb_av] eCW3 ([facility]) Body height [in_i] eCW3 ([facility]) Diastolic blood 77 mm[Hg] 77 mm[Hg] eCW3 ([facility]) Systolic blood 127 mm[Hg] 127 mm[Hg] eCW3 ([facility]) Body temperature 97.9 [degF] 97.9 [degF] eCW3 ( [facility]) Heart rate 18 /min 18 /min eCW3 ([facility]) Body mass index 17.83 kg/m2 17.83 kg/m2 eCW3 ([facility] (BMI) [Ratio] [facility]) Body weight [lb_av] eCW3 ([facility]) Body height [in_i] eCW3 ([facility]) Diastolic blood 82 mm[Hg] 82 mm[Hg] eCW3 ([facility]) Systolic blood 133 mm[Hg] 133 mm[Hg] eCW3 ([facility]) Body temperature 98.3 [degF] 98.3 [degF] eCW3 ( [facility]) Heart rate 18 /min 18 /min eCW3 ([facility] [facility] Body mass index 17.41 kg/m2 17.41 kg/m2 eCW3 ([facility] (BMI) [Ratio] [facility]) Body weight 132 [lb_av] 132 [lb_av] eCW3 ([facility]) Body height [in_i] eCW3 ([facility]) Diastolic blood 95 mm[Hg] 95 mm[Hg] eCW3 ([facility]) Systolic blood 151 mm[Hg] 151 mm[Hg] eCW3 ([facility]) Body temperature 98.3 [degF] 98.3 [degF] eCW3 ( [facility]) Heart rate 18 /min 18 /min eCW3 ([facility]) Body mass index 17.41 kg/m2 17.41 kg/m2 eCW3 ([facility] (BMI) [Ratio] [facility]) Body weight 132 [lb_av] 132 [lb_av] eCW3 ([facility]) Body height [in_i] eCW3 ([facility]) Patient Treatment Plan of Care Planned Activity Planned Date Details Description Data Source (s) STACY [id number] 03/22/2019 12:00:00 eCW3 ([facility]) SYMBOB [phone] 03/22/2019 12:00:00 eCW3 ([facility]) STACY [id number] 03/22/2019 12:00:00 eCW3 ([facility]) [id number] 03/22/2019 12:00:00 eCW3 ([facility])
[2020-02-28] MEDS ORDERED: INSULIN (NOVOLOG) ASPART 100 UNITS/ML 10ML VIAL SQ ONE (19:37)
[2020-02-28] MEDS ORDERED: ALBUTEROL SO4 HFA INHALER IH PRN (19:44)
[2020-02-28] MEDS ORDERED: INSULIN SLIDING SCALE (NOVOLOG) 1 VIAL SQ SCH (22:00)
[2020-02-28] MEDS: MELATONIN 5 MG TABLETS PO SCH (22:29)
[2020-02-28] MEDS: THIAMINE HCL 100 MG TABLET (FP) PO SCH (22:29)
[2020-02-28] MEDS: INSULIN SLIDING SCALE (NOVOLOG) 1 VIAL SQ SCH (22:29)
[2020-02-28] MEDS: diazePAM 5 MG TABLET PO SCH (22:29)
[2020-02-29] MEDS: diazePAM 5 MG TABLET PO SCH ×4 (05:55→22:05)
[2020-02-29] MEDS: INSULIN SLIDING SCALE (NOVOLOG) 1 VIAL SQ SCH ×4 (07:02→22:05)
[2020-02-29] MEDS ORDERED: INSULIN SLIDING SCALE (NOVOLOG) 1 VIAL SQ ONE ×2 (07:13→12:41)
[2020-02-29 10:07] LABS: BILIRUBIN,TOTAL 0.4 mg/dL (0.2-1); BLOOD UREA NITROGEN 12.8 mg/dL (7-18); CALCIUM 8.9 mg/dL (8.5-10.1); CREATININE 0.9 mg/dL (0.55-1.3); HEMATOCRIT 34.2 % (35.4-49); HEMOGLOBIN 11.5 GM/dL (11.7-16.9); MCHC 33.7 g/dl (32.0-35.9); MEAN CELL VOLUME 89.1 fl (80-96); MEAN PLT VOLUME 6.9 fl (7.5-11.1); PLATELET COUNT 220 K/MM3 (134-434); POTASSIUM 3.7 mmol/L (3.5-5.1); RBC 3.84 M/mm3 (4.00-5.60); RDW 14.1 % (11.9-15.9); TOT PROT 6.4 g/dl (6.4-8.2); WHITE BLOOD COUNT 6.5 K/mm3 (4.0-10.0)
[2020-02-29] MEDS: LISINOPRIL 20 MG TABLET PO SCH (10:17)
[2020-02-29] MEDS: PRENATAL VITAMINS W/ FOLIC ACID TABLET (FP) PO SCH (10:17)
[2020-02-29] MEDS: amLODIPine BESYLATE 10 MG TABLET (FP) PO SCH (10:17)
[2020-02-29] MEDS: BICTEGRAV/EMTRICIT/TENOFOV (BIKTARVY) 50-200-25 MG TABLET PO SCH (10:24)
--- NOTE | 2020-02-29 10:40 | PN ---
S CIWA - CIWA Score Nausea/Vomitin-No Nausea/No Vomiting Muscle Tremors: 1-None Visible, but [place] Anxiety: 2 Agitation: 0-Normal Activity Paroxysmal Sweats: 1-Minimal Palms Moist Orientation: 1-Uncertain about Date Tacttile Disturbances: 0-None Auditory Disturbances: 0-None Visual Disturbances: 0-None Headache: 0-None Present CIWA-Ar Total Score: 5 BHS Progress Note (SOAP) Subjective: Asking for Seroquel 25 bid, mild withdrawal complaints Objective: 02/29/20 10:35 PE Gnl: WDWN MS: mild dysarthria Motor: ambulates with rolling walker, residual left leg weakness per pt remote CVA Gait: drags left leg as he walks Laboratory Tests 02/28/20 02/28/20 02/29/20 18:42 22:28 05:53 WBC RBC Hgb Hct MCV MCH MCHC RDW Plt Count MPV Sodium Potassium Chloride Carbon Dioxide Anion Gap BUN Creatinine Est GFR (CKD-EPI)AfAm Est GFR (CKD-EPI)NonAf POC Glucometer 451 194 417 Random Glucose Calcium Total Bilirubin AST ALT Alkaline Phosphatase Total Protein Albumin Syphilis Serology 02/29/20 02/29/20 02/29/20 07:50 07:50 07:50 WBC 6.5 RBC 3.84 L Hgb 11.5 L Hct 34.2 L D MCV 89.1 MCH 30.0 MCHC 33.7 RDW 14.1 Plt Count 220 MPV 6.9 L Sodium 140 Potassium 3.7 Chloride 107 Carbon Dioxide 28 Anion Gap 5 L BUN 12.8 Creatinine 0.9 Est GFR (CKD-EPI)AfAm 102.79 Est GFR (CKD-EPI)NonAf 88.69 POC Glucometer Random Glucose 265 H Calcium 8.9 Total Bilirubin 0.4 AST 10 L ALT 12 L Alkaline Phosphatase 59 Total Protein 6.4 Albumin 3.0 L Syphilis Serology Non-reactive Home Medication List Medication Instructions Recorded Confirmed Type Lisinopril [Prinivil] 20 mg PO DAILY 10/23/12 02/28/20 History Albuterol Sulfate [Proair Hfa] 2 puff IH Q4HWA 02/28/20 02/28/20 History Amlodipine Besylate [Norvasc -] 10 mg PO DAILY 02/28/20 02/28/20 History Bictegrav/Emtricit/Tenofov Ala 1 tablet PO DAILY 02/28/20 02/28/20 History [Biktarvy 50-200-25 mg Tablet] Metformin HCl [Glucophage] 1,000 mg PO BID 02/28/20 02/28/20 History Sulfamethoxazole/Trimethoprim 1 tablet PO DAILY 02/28/20 02/28/20 History [Sulfamethoxazole-Tmp Ds Tablet] Active Medications Generic Name Dose Route Start Last Admin Trade Name Freq PRN Reason Stop Dose Admin Acetaminophen 650 mg 02/28/20 18:18 Tylenol - PO Q6H PRN PAIN LEVEL 4 - 6 Acetaminophen 650 mg 02/28/20 18:18 Tylenol - PO Q6H PRN FEVER Al Hydroxide/Mg Hydroxide 30 ml 02/28/20 18:18 Mylanta Oral Suspension - PO Q6H PRN DYSPEPSIA Albuterol Sulfate 2 puff 02/28/20 19:44 Ventolin Hfa Inhaler - IH Q4H PRN ASTHMA Amlodipine Besylate 10 mg 02/29/20 10:00 02/29/20 10:17 Norvasc - PO 10 mg DAILY MADDI Administration Bictegravir/Emtricitabine/Tenofovir 1 each 02/29/20 08:00 02/29/20 10:24 Biktarvy 50-200-25 Mg Tablet PO 1 each DAILY@0800 MADDI Administration Bismuth Subsalicylate 524 mg 02/28/20 18:18 Pepto-Bismol - PO Q1H PRN DIARRHEA Diazepam 5 mg 02/28/20 23:00 02/29/20 10:17 Valium - PO 02/29/20 23:01 5 mg Q6H MADDI Administration Diazepam 5 mg 03/01/20 06:00 Valium - PO 03/01/20 18:01 Q12H MADDI Diazepam 10 mg 02/28/20 18:23 Valium - PO 03/01/20 18:22 Q4H PRN WITHDRAWAL(CONT SUBST) Diazepam 5 mg 03/02/20 06:00 Valium - PO 03/02/20 06:01 ONCE ONE Eucalyptus/Menthol/Phenol/Sorbitol 1 each 02/28/20 18:18 Cepastat Lozenge - MM 03/05/20 18:18 Q4H PRN SORE THROAT Ibuprofen 400 mg 10/15/20 18:18 Motrin - PO Q6H PRN PAIN LEVEL 1 - 3 Insulin Aspart 1 vial 02/28/20 19:29 02/29/20 07:02 Novolog Vial Sliding Scale - SQ 10 units ACHS MADDI Administration Protocol Lisinopril 20 mg 02/29/20 10:00 02/29/20 10:17 Prinivil PO 20 mg DAILY MADDI Administration Magnesium Citrate 300 ml 02/28/20 18:18 Citroma - PO Q48H PRN CONSTIPATION Magnesium Hydroxide 30 ml 02/28/20 18:18 Milk Of Magnesia - PO PRN PRN CONSTIPATION Melatonin 5 mg 02/28/20 22:00 02/28/20 22:29 Melatonin PO 5 mg HS MADDI Administration Ondansetron HCl 4 mg 02/28/20 18:18 Zofran Odt - SL Q8H PRN Nausea/Vomiting Multivit/Folic Acid/Iron 1 tab 02/29/20 10:00 02/29/20 10:17 Vitamins (Sjr) - PO 1 tab DAILY MADDI Administration Thiamine HCl 100 mg 02/28/20 22:00 02/28/20 22:29 Vitamin B1 - PO 100 mg HS MADDI Administration Vital Signs Temperature 97.8 F 02/29/20 08:42 Pulse Rate 104 H 02/29/20 08:42 Respiratory Rate 16 02/29/20 08:42 Blood Pressure 103/69 02/29/20 08:42 O2 Sat by Pulse Oximetry (%) 99 02/28/20 19:39 Assessment: 02/29/20 10:33 64 y.o. male requesting detox from alcohol use , claims he drinks 1.5 pints Bacardi /day , relapsed 7 months ago , latest use this morning , denies seizures, blackouts , occasional tremors if not drinking . cocaine : occasional tobacco : 3 x/day PMHX : HTN , DM , HIV since 1993 , multiple CVA's PSHX : R KNEE SX FROM FX , TENDON REPAIR L HAND IN psych : anxiety, depression on Seroquel 02/29/20 10:42 Imp 1. Alcohol withdrawal uncomplicated Plan: 1. Valium detox protocol 2. Seen by AMEYA Vera, Seroquel planned
--- NOTE | 2020-02-29 10:44 | CONSULT ---
[facility] Psychiatric Consult - Data Date of interview: 02/29/20 Admission source: [facility] Identifying data: Patient is a 64 year old male, , father of two, unemployed, domiciled, and is supported with SSI benefits. This is one of multiple admissions for patient. Patient admitted to for alcohol dependence. Substance Abuse History: History of alcohol use disorder. Medical History: HTN , DM , HIV, history of multiple CVA's Psychiatric History: Patient denies history of psychiatric hospitalization and suicide attempt. Patient states that he is currently provided with outpatient psychiatric care at [facility] by Dr. Epps and is prescribed seroquel 50mg BID. Mr. Ashraf reports a diagnosis of depression and anxiety. At present patient reports stable mood. Physical/Sexual Abuse/Trauma History: denies. Mental Status Exam - Mental Status Exam Alert and Oriented to: Time, Place, Person Cognitive Function: Good Patient Appearance: Well Groomed Mood: Hopeful Affect: Appropriate Patient Behavior: Appropriate, Cooperative Speech Pattern: Appropriate Voice Loudness: Normal Thought Process: Intact, Goal Oriented Thought Disorder: Not Present Hallucinations: Denies Suicidal Ideation: Denies Homicidal Ideation: Denies Insight/Judgement: Poor Sleep: Fair Appetite: Fair Muscle strength/Tone: Normal Gait/Station: Other (Patient ambulates with a rolling walker. Patient with a history of a CVA.) Psychiatric Findings - Problem List ([place] 1, 2,3) (1) History of depression Current Visit: Yes Status: Chronic (2) Alcohol use disorder Current Visit: Yes Status: Chronic - Initial Treatment Plan Initial Treatment Plan: Psychoeducation provided. Detoxification in progress. Will order Seroquel 50mg BID. Benefits and side effects discussed. Verbal consent given.
[2020-02-29] MEDS: metFORMIN HCL 500 MG TABLET (FP) PO SCH (17:37)
[2020-02-29] MEDS ORDERED: QUEtiapine FUMARATE 25 MG TABLET PO SCH (22:00)
[2020-02-29] MEDS: MELATONIN 5 MG TABLETS PO SCH (22:04)
[2020-02-29] MEDS: THIAMINE HCL 100 MG TABLET (FP) PO SCH (22:05)
[2020-02-29] MEDS: QUEtiapine FUMARATE 50 MG TABLET PO SCH (22:05)
[2020-03-01] MEDS: metFORMIN HCL 500 MG TABLET (FP) PO SCH ×2 (07:17→17:50)
[2020-03-01] MEDS: BICTEGRAV/EMTRICIT/TENOFOV (BIKTARVY) 50-200-25 MG TABLET PO SCH (07:18)
[2020-03-01] MEDS: diazePAM 5 MG TABLET PO SCH ×2 (07:18→17:50)
[2020-03-01] MEDS: INSULIN SLIDING SCALE (NOVOLOG) 1 VIAL SQ SCH ×4 (07:18→22:36)
[2020-03-01] MEDS ORDERED: INSULIN SLIDING SCALE (NOVOLOG) 1 VIAL SQ ONE (07:22)
[2020-03-01] MEDS: PRENATAL VITAMINS W/ FOLIC ACID TABLET (FP) PO SCH (10:53)
[2020-03-01] MEDS: amLODIPine BESYLATE 10 MG TABLET (FP) PO SCH (10:55)
[2020-03-01] MEDS: LISINOPRIL 20 MG TABLET PO SCH (10:55)
[2020-03-01] MEDS: QUEtiapine FUMARATE 50 MG TABLET PO SCH ×2 (10:56→22:36)
--- NOTE | 2020-03-01 11:35 | PN ---
[facility] CIWA - CIWA Score Nausea/Vomitin-No Nausea/No Vomiting Muscle Tremors: None Anxiety: 2 Agitation: 0-Normal Activity Paroxysmal Sweats: 2 Orientation: 0-Oriented Tacttile Disturbances: 0-None Auditory Disturbances: 0-None Visual Disturbances: 0-None Headache: 0-None Present CIWA-Ar Total Score: 4 S Progress Note (SOAP) Subjective: c/o mild withdrawal symptoms. Objective: 03/01/20 11:33 Vital Signs 03/01/20 03/01/20 06:28 08:58 Temperature 97.5 F L 98.6 F Pulse Rate 62 104 H Respiratory 16 20 Rate Blood Pressure 104/68 110/70 O2 Sat by Pulse 98 Oximetry (%) Laboratory Last Values WBC 6.5 K/mm3 (4.0-10.0) 02/29/20 07:50 RBC 3.84 M/mm3 (4.00-5.60) L 02/29/20 07:50 Hgb 11.5 GM/dL (11.7-16.9) L 02/29/20 07:50 Hct 34.2 % (35.4-49) L D 02/29/20 07:50 MCV 89.1 fl (80-96) 02/29/20 07:50 MCH 30.0 pg (25.7-33.7) 02/29/20 07:50 MCHC 33.7 g/dl (32.0-35.9) 02/29/20 07:50 RDW 14.1 % (11.9-15.9) 02/29/20 07:50 Plt Count 220 K/MM3 (134-434) 02/29/20 07:50 MPV 6.9 fl (7.5-11.1) L 02/29/20 07:50 Sodium 140 mmol/L (136-145) 02/29/20 07:50 Potassium 3.7 mmol/L (3.5-5.1) 02/29/20 07:50 Chloride 107 mmol/L (98-107) 02/29/20 07:50 Carbon Dioxide 28 mmol/L (21-32) 02/29/20 07:50 Anion Gap 5 MMOL/L (8-16) L 02/29/20 07:50 BUN 12.8 mg/dL (7-18) 02/29/20 07:50 Creatinine 0.9 mg/dL (0.55-1.3) 02/29/20 07:50 Est GFR (CKD-EPI)AfAm 102.79 02/29/20 07:50 Est GFR (CKD-EPI)NonAf 88.69 02/29/20 07:50 POC Glucometer 287 UNITS (80-120) 03/01/20 10:52 Random Glucose 265 mg/dL (74-106) H 02/29/20 07:50 Calcium 8.9 mg/dL (8.5-10.1) 02/29/20 07:50 Total Bilirubin 0.4 mg/dL (0.2-1) 02/29/20 07:50 AST 10 U/L (15-37) L 02/29/20 07:50 ALT 12 U/L (13-61) L 02/29/20 07:50 Alkaline Phosphatase 59 U/L (45-117) 02/29/20 07:50 Total Protein 6.4 g/dl (6.4-8.2) 02/29/20 07:50 Albumin 3.0 g/dl (3.4-5.0) L 02/29/20 07:50 Syphilis Serology Non-reactive (NONREACTIVE) 02/29/20 07:50 COVID-19 ([facility]) Not detected (Not Detected) 02/28/20 18:45 Labs noted. Assessment: 03/01/20 11:34 AOX3, in no acute respiratory distress. Full ROM, ambulating in the unit. Mild Withdrawal symptoms. For d/c tomorrow. Plan: continue detox. D/C in AM.
[2020-03-01] MEDS: MELATONIN 5 MG TABLETS PO SCH (22:35)
[2020-03-01] MEDS: THIAMINE HCL 100 MG TABLET (FP) PO SCH (22:37)
[2020-03-02] MEDS ORDERED: INSULIN SLIDING SCALE (NOVOLOG) 1 VIAL SQ ONE ×2 (03:32→07:45)
[2020-03-02] MEDS ORDERED: diazePAM 5 MG TABLET PO ONE (06:00)
[2020-03-02] MEDS: metFORMIN HCL 500 MG TABLET (FP) PO SCH ×2 (06:04→16:53)
[2020-03-02] MEDS: INSULIN SLIDING SCALE (NOVOLOG) 1 VIAL SQ SCH ×4 (06:09→22:22)
[2020-03-02] MEDS: BICTEGRAV/EMTRICIT/TENOFOV (BIKTARVY) 50-200-25 MG TABLET PO SCH (07:49)
--- NOTE | 2020-03-02 09:10 | DS ---
[facility] Detox Discharge Summary Admission Date: 02/28/20 Discharge Date: 03/02/20 - History Present History: Alcohol Dependence Additional Comments: around 0955 unwitnessed fall in day room bp 126/73 88 hold discharge for today mr magallon denies pain sitting on chair wheelchair in front mr jorge states that his right lateral trunk was on the floor right lateral trunk skin intact no redness none tenderness denies alteration mobility mr ivey refuses to go to the ER encourage ER refusal to be signed fall precaution - Physical Exam Results Vital Signs: Vital Signs Temperature 97.3 F L 03/02/20 06:16 Pulse Rate 81 03/02/20 06:16 Respiratory Rate 16 03/02/20 06:16 Blood Pressure 115/69 03/02/20 06:16 O2 Sat by Pulse Oximetry (%) 99 03/02/20 06:16 - Treatment Hospital Course: Detox Protocol Followed, Detoxed Safely, Responded well, Discharged Condition Good, Rehab Referral Accepted - Medication Discharge Medications: Ambulatory Orders Lisinopril [Prinivil] 20 mg PO DAILY 10/23/12 Quetiapine Fumarate [Seroquel -] 25 mg PO BID #60 tablet 09/12/15 Albuterol Sulfate [Proair Hfa] 2 puff IH Q4HWA 02/28/20 Amlodipine Besylate [Norvasc -] 10 mg PO DAILY 02/28/20 Bictegrav/Emtricit/Tenofov Ala [Biktarvy 50-200-25 mg Tablet] 1 tablet PO DAILY 02/28/20 Metformin HCl [Glucophage] 1,000 mg PO BID 02/28/20 Sulfamethoxazole/Trimethoprim [Sulfamethoxazole-Tmp Ds Tablet] 1 tablet PO DAILY 02/28/20 - AMA Did Patient Leave Against Medical Advice: No CIWA Score - CIWA Score Nausea/Vomitin-No Nausea/No Vomiting Muscle Tremors: None Anxiety: 1-Mildly Anxious Agitation: 0-Normal Activity Paroxysmal Sweats: 1-Minimal Palms Moist Orientation: 0-Oriented Tacttile Disturbances: 0-None Auditory Disturbances: 0-None Visual Disturbances: 0-None Headache: 0-None Present CIWA-Ar Total Score: 2
[2020-03-02] MEDS: QUEtiapine FUMARATE 50 MG TABLET PO SCH ×2 (10:10→22:22)
[2020-03-02] MEDS: amLODIPine BESYLATE 10 MG TABLET (FP) PO SCH (10:10)
[2020-03-02] MEDS: LISINOPRIL 20 MG TABLET PO SCH (10:10)
[2020-03-02] MEDS: PRENATAL VITAMINS W/ FOLIC ACID TABLET (FP) PO SCH (10:10)
--- NOTE | 2020-03-02 12:28 | PN ---
[facility] CIWA - CIWA Score Nausea/Vomitin-No Nausea/No Vomiting Muscle Tremors: 1-None Visible, but [place] Anxiety: 0-No Anxiety, at Ease Agitation: 0-Normal Activity Paroxysmal Sweats: No Perspiration Orientation: 0-Oriented Tacttile Disturbances: 0-None Auditory Disturbances: 0-None Visual Disturbances: 0-None Headache: 0-None Present CIWA-Ar Total Score: 1 S Progress Note (SOAP) Subjective: 64 years old Andrés male was admitted on 02/28/20 for alcohol withdrawal sx management treating with valium detox regiment mr magallon does not want to go to [facility] "I want to come here" mr magallon wants to to [facility] today case discussed with counselor for possible [facility] admission today Objective: 03/02/20 12:40 Vital Signs - 24 hr 03/01/20 03/01/20 03/01/20 12:46 16:59 20:17 Temperature 97.5 F L 98.0 F 97.3 F L Pulse Rate 93 H 110 H 104 H Respiratory 20 16 16 Rate Blood Pressure 133/83 112/75 109/77 O2 Sat by Pulse 98 97 Oximetry (%) 03/02/20 03/02/20 03/02/20 06:16 08:32 09:46 Temperature 97.3 F L 97.7 F 97.2 F L Pulse Rate 81 106 H 88 Respiratory 16 20 18 Rate Blood Pressure 115/69 112/78 126/73 O2 Sat by Pulse 99 Oximetry (%) 03/02/20 11:46 Temperature 98.2 F Pulse Rate 95 H Respiratory 20 Rate Blood Pressure 134/75 O2 Sat by Pulse Oximetry (%) Laboratory Tests 02/28/20 02/28/20 02/28/20 18:42 18:45 22:28 WBC RBC Hgb Hct MCV MCH MCHC RDW Plt Count MPV Sodium Potassium Chloride Carbon Dioxide Anion Gap BUN Creatinine Est GFR (CKD-EPI)AfAm Est GFR (CKD-EPI)NonAf POC Glucometer 451 194 Random Glucose Calcium Total Bilirubin AST ALT Alkaline Phosphatase Total Protein Albumin Syphilis Serology COVID-19 ([facility]) Not detected 02/29/20 02/29/20 02/29/20 05:53 07:50 07:50 WBC 6.5 RBC 3.84 L Hgb 11.5 L Hct 34.2 L D MCV 89.1 MCH 30.0 MCHC 33.7 RDW 14.1 Plt Count 220 MPV 6.9 L Sodium Potassium Chloride Carbon Dioxide Anion Gap BUN Creatinine Est GFR (CKD-EPI)AfAm Est GFR (CKD-EPI)NonAf POC Glucometer 417 Random Glucose Calcium Total Bilirubin AST ALT Alkaline Phosphatase Total Protein Albumin Syphilis Serology Non-reactive COVID-19 ([facility]) 02/29/20 02/29/20 02/29/20 07:50 11:44 16:35 WBC RBC Hgb Hct MCV MCH MCHC RDW Plt Count MPV Sodium 140 Potassium 3.7 Chloride 107 Carbon Dioxide 28 Anion Gap 5 L BUN 12.8 Creatinine 0.9 Est GFR (CKD-EPI)AfAm 102.79 Est GFR (CKD-EPI)NonAf 88.69 POC Glucometer 566 > 600 Random Glucose 265 H Calcium 8.9 Total Bilirubin 0.4 AST 10 L ALT 12 L Alkaline Phosphatase 59 Total Protein 6.4 Albumin 3.0 L Syphilis Serology COVID-19 ([facility]) 02/29/20 03/01/20 03/01/20 20:59 06:25 10:52 WBC RBC Hgb Hct MCV MCH MCHC RDW Plt Count MPV Sodium Potassium Chloride Carbon Dioxide Anion Gap BUN Creatinine Est GFR (CKD-EPI)AfAm Est GFR (CKD-EPI)NonAf POC Glucometer 280 255 287 Random Glucose Calcium Total Bilirubin AST ALT Alkaline Phosphatase Total Protein Albumin Syphilis Serology COVID-19 ([facility]) 03/01/20 03/01/20 03/02/20 16:30 21:19 06:06 WBC RBC Hgb Hct MCV MCH MCHC RDW Plt Count MPV Sodium Potassium Chloride Carbon Dioxide Anion Gap BUN Creatinine Est GFR (CKD-EPI)AfAm Est GFR (CKD-EPI)NonAf POC Glucometer 242 399 274 Random Glucose Calcium Total Bilirubin AST ALT Alkaline Phosphatase Total Protein Albumin Syphilis Serology COVID-19 ([facility]) 03/02/20 11:52 WBC RBC Hgb Hct MCV MCH MCHC RDW Plt Count MPV Sodium Potassium Chloride Carbon Dioxide Anion Gap BUN Creatinine Est GFR (CKD-EPI)AfAm Est GFR (CKD-EPI)NonAf POC Glucometer 570 Random Glucose Calcium Total Bilirubin AST ALT Alkaline Phosphatase Total Protein Albumin Syphilis Serology COVID-19 ([facility]) chronic insulin dependent diabetes Assessment: 03/02/20 12:42 alcohol withdrawal Plan: valium regiment
[2020-03-02] MEDS: THIAMINE HCL 100 MG TABLET (FP) PO SCH (22:19)
[2020-03-02] MEDS: MELATONIN 5 MG TABLETS PO SCH (22:19)
[2020-03-03] MEDS: metFORMIN HCL 500 MG TABLET (FP) PO SCH (06:57)
[2020-03-03] MEDS: BICTEGRAV/EMTRICIT/TENOFOV (BIKTARVY) 50-200-25 MG TABLET PO SCH (07:06)
[2020-03-03] MEDS: INSULIN SLIDING SCALE (NOVOLOG) 1 VIAL SQ SCH (07:14)
[2020-03-03 09:37] VITALS: BP 133/78; PULSE 92; TEMP 97.1
--- NOTE | 2020-03-03 12:17 | DS ---
[facility] Detox Discharge Summary Admission Date: 02/28/20 Discharge Date: 03/03/20 - History Present History: Alcohol Dependence Additional Comments: 64 years old male was admitted on 02/28/20 for alcohol withdrawal sx management treated with valium detox regiment seen by psychiatrist tegan owens mr magallon has completed the valium regiment on 03/02/20 and is tolerated well mr magallon fell on 03/02/20 and bgm elevation "I want to go to up stair rehab" met with counselor and patient to discuss [facility] is good match "I want to go home" mr pritchett is alert oriented x 3 speech clearly coherently ambulating with walker slow and steady General Appearance: Yes: no Distress HEENTM: Yes: EOMI, Hearing grossly Normal, Normocephalic, Muffled/Hoarse Voice Respiratory: Yes: Chest Non-Tender, Lungs Clear, Normal Breath Sounds, No Respiratory Distress, No Accessory Muscle Use Neck: Yes: No masses,lesions,Nodules, Trachea in good position Cardiology: Yes: Regular Rhythm, Regular Rate, S1, S2 Abdominal: Yes: Non Tender, Flat, Soft Back: Yes: Normal Inspection Musculoskeletal: Yes: Muscle weakness (left-sided 2/2 prior CVA), Other (unsteady gait , using walker for ambulation) Extremities: Yes: Non-Tender, Other (LEFT LE weakness, limping left) Neurological: Yes: Fully Oriented, Alert, Other (strength 4/5 LLE) Integumentary: Yes: Warm Pertinent Past History: time for discharge 33 minutes mr magallon denies pain denies trouble movement from fall right lateral trunk skin intact no redness no swelling - Physical Exam Results Vital Signs: Vital Signs Temperature 97.1 F L 03/03/20 09:03 Pulse Rate 92 H 03/03/20 09:03 Respiratory Rate 18 03/03/20 09:03 Blood Pressure 133/78 03/03/20 09:03 O2 Sat by Pulse Oximetry (%) 97 03/03/20 05:46 Pertinent Admission Physical Exam Findings: alcohol withdrawal Vital Signs - 24 hr 03/02/20 03/02/20 03/02/20 13:46 15:46 16:47 Temperature 97.3 F L 97.7 F 98.2 F Pulse Rate 96 H 89 83 Respiratory 20 18 16 Rate Blood Pressure 113/73 117/73 116/68 O2 Sat by Pulse 99 96 Oximetry (%) 03/02/20 03/02/20 03/02/20 17:46 19:00 19:46 Temperature 97.8 F 97.8 F 97.8 F Pulse Rate 105 H 105 H 104 H Respiratory 18 18 18 Rate Blood Pressure 116/63 116/63 113/75 O2 Sat by Pulse Oximetry (%) 03/02/20 03/02/20 03/02/20 20:10 21:46 23:01 Temperature 97.8 F 98.2 F Pulse Rate 104 H 84 84 Respiratory 18 18 18 Rate Blood Pressure 113/75 110/68 110/68 O2 Sat by Pulse 99 Oximetry (%) 03/03/20 03/03/20 03/03/20 01:46 05:46 09:03 Temperature 98.0 F 97.5 F L 97.1 F L Pulse Rate 82 77 92 H Respiratory 16 18 18 Rate Blood Pressure 115/69 130/75 133/78 O2 Sat by Pulse 98 97 Oximetry (%) Laboratory Tests 02/28/20 02/28/20 02/28/20 18:42 18:45 22:28 WBC RBC Hgb Hct MCV MCH MCHC RDW Plt Count MPV Sodium Potassium Chloride Carbon Dioxide Anion Gap BUN Creatinine Est GFR (CKD-EPI)AfAm Est GFR (CKD-EPI)NonAf POC Glucometer 451 194 Random Glucose Calcium Total Bilirubin AST ALT Alkaline Phosphatase Total Protein Albumin Syphilis Serology COVID-19 ([facility]) Not detected 02/29/20 02/29/20 02/29/20 05:53 07:50 07:50 WBC 6.5 RBC 3.84 L Hgb 11.5 L Hct 34.2 L D MCV 89.1 MCH 30.0 MCHC 33.7 RDW 14.1 Plt Count 220 MPV 6.9 L Sodium Potassium Chloride Carbon Dioxide Anion Gap BUN Creatinine Est GFR (CKD-EPI)AfAm Est GFR (CKD-EPI)NonAf POC Glucometer 417 Random Glucose Calcium Total Bilirubin AST ALT Alkaline Phosphatase Total Protein Albumin Syphilis Serology Non-reactive COVID-19 ([facility]) 02/29/20 02/29/20 02/29/20 07:50 11:44 16:35 WBC RBC Hgb Hct MCV MCH MCHC RDW Plt Count MPV Sodium 140 Potassium 3.7 Chloride 107 Carbon Dioxide 28 Anion Gap 5 L BUN 12.8 Creatinine 0.9 Est GFR (CKD-EPI)AfAm 102.79 Est GFR (CKD-EPI)NonAf 88.69 POC Glucometer 566 > 600 Random Glucose 265 H Calcium 8.9 Total Bilirubin 0.4 AST 10 L ALT 12 L Alkaline Phosphatase 59 Total Protein 6.4 Albumin 3.0 L Syphilis Serology COVID-19 ([facility]) 02/29/20 03/01/20 03/01/20 20:59 06:25 10:52 WBC RBC Hgb Hct MCV MCH MCHC RDW Plt Count MPV Sodium Potassium Chloride Carbon Dioxide Anion Gap BUN Creatinine Est GFR (CKD-EPI)AfAm Est GFR (CKD-EPI)NonAf POC Glucometer 280 255 287 Random Glucose Calcium Total Bilirubin AST ALT Alkaline Phosphatase Total Protein Albumin Syphilis Serology COVID-19 ([facility]) 03/01/20 03/01/20 03/02/20 16:30 21:19 06:06 WBC RBC Hgb Hct MCV MCH MCHC RDW Plt Count MPV Sodium Potassium Chloride Carbon Dioxide Anion Gap BUN Creatinine Est GFR (CKD-EPI)AfAm Est GFR (CKD-EPI)NonAf POC Glucometer 242 399 274 Random Glucose Calcium Total Bilirubin AST ALT Alkaline Phosphatase Total Protein Albumin Syphilis Serology COVID-19 ([facility]) 03/02/20 03/02/20 03/02/20 11:52 16:31 21:21 WBC RBC Hgb Hct MCV MCH MCHC RDW Plt Count MPV Sodium Potassium Chloride Carbon Dioxide Anion Gap BUN Creatinine Est GFR (CKD-EPI)AfAm Est GFR (CKD-EPI)NonAf POC Glucometer 570 402 284 Random Glucose Calcium Total Bilirubin AST ALT Alkaline Phosphatase Total Protein Albumin Syphilis Serology COVID-19 ([facility]) 03/03/20 07:02 WBC RBC Hgb Hct MCV MCH MCHC RDW Plt Count MPV Sodium Potassium Chloride Carbon Dioxide Anion Gap BUN Creatinine Est GFR (CKD-EPI)AfAm Est GFR (CKD-EPI)NonAf POC Glucometer 290 Random Glucose Calcium Total Bilirubin AST ALT Alkaline Phosphatase Total Protein Albumin Syphilis Serology COVID-19 ([facility]) strong recommend no concentrated sugar and hygiene and mask - Treatment Hospital Course: Detox Protocol Followed, Detoxed Safely, Responded well, Discha rged Condition Good, Rehab Referral Accepted Patient has Accepted a Rehab Referral to: [facility] - Medication Discharge Medications: Ambulatory Orders Lisinopril [Prinivil] 20 mg PO DAILY 06/10/13 Quetiapine Fumarate [Seroquel -] 25 mg PO BID #60 tablet 09/12/15 Albuterol Sulfate [Proair Hfa] 2 puff IH Q4HWA 02/28/20 Amlodipine Besylate [Norvasc -] 10 mg PO DAILY 02/28/20 Bictegrav/Emtricit/Tenofov Ala [Biktarvy 50-200-25 mg Tablet] 1 tablet PO DAILY 02/28/20 Metformin HCl [Glucophage] 1,000 mg PO BID 02/28/20 Sulfamethoxazole/Trimethoprim [Sulfamethoxazole-Tmp Ds Tablet] 1 tablet PO DAILY 02/28/20 - Diagnosis (1) AIDS (acquired immune deficiency syndrome) Status: Chronic (2) Substance induced mood disorder Status: Suspected (3) Hypertension Status: Chronic Qualifiers: Hypertension type: essential hypertension Qualified Code(s): I10 - Essential (primary) hypertension (4) Alcohol dependence with uncomplicated withdrawal Status: Acute (5) Walker as ambulation aid Status: Chronic (6) Diabetes mellitus type II, non insulin dependent Status: Chronic - AMA Did Patient Leave Against Medical Advice: No CIWA Score - CIWA Score Nausea/Vomitin-No Nausea/No Vomiting Muscle Tremors: None Anxiety: 0-No Anxiety, at Ease Agitation: 0-Normal Activity Paroxysmal Sweats: No Perspiration Orientation: 0-Oriented Tacttile Disturbances: 0-None Auditory Disturbances: 0-None Visual Disturbances: 0-None Headache: 0-None Present CIWA-Ar Total Score: 0
== END 2020-03-03 09:26 | disposition home or self-care (01) | DRG 897 ==
LOC: YASAS 15:24 → Y3N 18:37
PROVIDERS: ADMIT Allergy & Immunology; ATTEND Allergy & Immunology
PROC: HZ2ZZZZ Detoxification Services for Substance Abuse Treatment (ICD-10-PCS; principal; 2020-02-28)
DX: F10.230 Alcohol dependence with withdrawal, uncomplicated (principal); B20 Human immunodeficiency virus [HIV] disease; I69.854 Hemiplegia and hemiparesis following other cerebrovascular disease affecting left non-dominant side; F14.10 Cocaine abuse, uncomplicated; F17.210 Nicotine dependence, cigarettes, uncomplicated; F41.9 Anxiety disorder, unspecified; F32.9 Major depressive disorder, single episode, unspecified; F19.24 Other psychoactive substance dependence with psychoactive substance-induced mood disorder; I10 Essential (primary) hypertension; E11.9 Type 2 diabetes mellitus without complications; Z79.84 Long term (current) use of oral hypoglycemic drugs; R26.81 Unsteadiness on feet; Z99.89 Dependence on other enabling machines and devices; Z56.0 Unemployment, unspecified; W19.XXXA Unspecified fall, initial encounter; Y93.89 Activity, other specified; Y92.238 Other place in hospital as the place of occurrence of the external cause; Y99.8 Other external cause status
CPT/HCPCS: 36415; 80053; 82962; 85027; 86780; C9803; U0003

== ENCOUNTER 2022-03-26 12:07 | Inpatient (IN) | payer OTHER ==
[2022-03-26 13:05] VITALS: BMI 18.3
[2022-03-26] MEDS ORDERED: IBUPROFEN 400 MG TABLET (FP) PO PRN (14:34)
[2022-03-26] MEDS ORDERED: NALOXONE HCL (KLOXXADO) 8 MG SPRAY NS PRN (14:34)
[2022-03-26] MEDS ORDERED: MAG HYDROX/AL HYDROX/SIMETH 30 ML UNIT-DOSE CUP PO PRN (14:34)
[2022-03-26] MEDS ORDERED: IBUPROFEN 600 MG TABLET (FP) PO PRN (14:34)
[2022-03-26] MEDS ORDERED: NICOTINE 10 MG CARTRIDGE (INHALER) IH PRN (14:34)
[2022-03-26] MEDS ORDERED: ACETAMINOPHEN 325 MG TABLET (FP) PO PRN ×2 (14:34)
[2022-03-26] MEDS ORDERED: DICYCLOMINE HCL 10 MG CAPSULE PO PRN (14:34)
[2022-03-26] MEDS ORDERED: BENZOCAINE/MENTHOL (CHLORASEPTIC ) LOZENGE MM PRN (14:34)
[2022-03-26] MEDS ORDERED: MAGNESIUM HYDROX 2400MG/30ML ORAL SUSPENSION 30 ML CUP PO PRN (14:34)
[2022-03-26] MEDS ORDERED: ONDANSETRON *ODT* 4 MG TABLET SL PRN (14:34)
[2022-03-26] MEDS ORDERED: METHOCARBAMOL 500 MG TABLET PO PRN (14:34)
[2022-03-26] MEDS ORDERED: BISMUTH SUBSALICYLATE 524 MG/30 ML PO PRN (14:34)
[2022-03-26] MEDS ORDERED: LOPERAMIDE HCL 2 MG CAPSULE PO PRN (14:34)
[2022-03-26] MEDS ORDERED: INSULIN (NOVOLOG) ASPART 100 UNITS/ML 10ML VIAL ONE (15:51)
[2022-03-26] MEDS: INSULIN SLIDING SCALE (NOVOLOG) 1 VIAL SQ SCH (15:55)
[2022-03-26] MEDS ORDERED: ALBUTEROL SO4 HFA INHALER IH ONE (16:49)
[2022-03-26] MEDS ORDERED: ALBUTEROL SO4 HFA INHALER IH PRN (17:44)
[2022-03-26] MEDS ORDERED: ALBUTEROL SO4 HFA INHALER IH SCH (18:00)
[2022-03-26] MEDS: THIAMINE HCL 100 MG TABLET (FP) PO SCH (22:08)
[2022-03-26] MEDS: MELATONIN 5 MG TABLETS PO SCH (22:08)
[2022-03-26] MEDS: hydrOXYzine PAMOATE 25 MG CAPSULE (FP) PO PRN (22:10)
[2022-03-27] MEDS: INSULIN SLIDING SCALE (NOVOLOG) 1 VIAL SQ SCH ×2 (07:11→17:36)
[2022-03-27] MEDS: QUEtiapine FUMARATE 25 MG TABLET PO SCH ×2 (10:27→22:32)
[2022-03-27] MEDS: PRENATAL VITAMINS W/ FOLIC ACID TABLET (FP) PO SCH (10:27)
[2022-03-27 13:06] LABS: HEMATOCRIT 32.3 % (35.4-49); HEMOGLOBIN 10.8 GM/dL (11.7-16.9); MCH 28.8 pg (25.7-33.7); MCHC 33.5 g/dl (32.0-35.9); MEAN CELL VOLUME 85.8 fl (80-96); MEAN PLT VOLUME 7.4 fl (7.5-11.1); PLATELET COUNT 168 10^3/uL (134-434); RBC 3.77 M/mm3 (4.00-5.60); WHITE BLOOD COUNT 5.7 K/mm3 (4.0-10.0)
[2022-03-27 13:15] LABS: CALCIUM 8.9 mg/dL (8.5-10.1)
[2022-03-27 13:16] LABS: ALBUMIN 2.6 g/dl (3.4-5.0); BLOOD UREA NITROGEN 12.6 mg/dL (7-18)
[2022-03-27 13:17] LABS: CREATININE 0.9 mg/dL (0.55-1.3)
[2022-03-27 13:19] LABS: BILIRUBIN,TOTAL 0.2 mg/dL (0.2-1)
[2022-03-27] MEDS: THIAMINE HCL 100 MG TABLET (FP) PO SCH (22:32)
[2022-03-27] MEDS: MELATONIN 5 MG TABLETS PO SCH (22:32)
[2022-03-28] MEDS: hydrOXYzine PAMOATE 25 MG CAPSULE (FP) PO PRN (05:50)
[2022-03-28] MEDS ORDERED: INSULIN SLIDING SCALE (NOVOLOG) 1 VIAL SQ ONE (05:52)
[2022-03-28] MEDS: INSULIN SLIDING SCALE (NOVOLOG) 1 VIAL SQ SCH (06:53)
[2022-03-28] MEDS: QUEtiapine FUMARATE 25 MG TABLET PO SCH (10:42)
[2022-03-28] MEDS: PRENATAL VITAMINS W/ FOLIC ACID TABLET (FP) PO SCH (10:42)
[2022-03-28 11:01] VITALS: BP 149/87; PULSE 105; RESP 16; TEMP 97.1
== END 2022-03-28 11:19 | disposition home or self-care (01) | DRG 897 ==
LOC: YASAS 12:07 → Y3N 15:22 → UNDOADMIN 15:22 → UNDODISIN 03-28 11:19
PROVIDERS: ADMIT Allergy & Immunology; ATTEND Surgery
PROC: HZ2ZZZZ Detoxification Services for Substance Abuse Treatment (ICD-10-PCS; principal; 2022-03-26)
DX: F10.230 Alcohol dependence with withdrawal, uncomplicated (principal); F14.20 Cocaine dependence, uncomplicated; B20 Human immunodeficiency virus [HIV] disease; F17.210 Nicotine dependence, cigarettes, uncomplicated; F19.24 Other psychoactive substance dependence with psychoactive substance-induced mood disorder; F32.A Depression, unspecified; F41.9 Anxiety disorder, unspecified; I10 Essential (primary) hypertension; E11.9 Type 2 diabetes mellitus without complications; Z79.4 Long term (current) use of insulin; R26.89 Other abnormalities of gait and mobility; Z86.73 Personal history of transient ischemic attack (TIA), and cerebral infarction without residual deficits; Z99.89 Dependence on other enabling machines and devices
CPT/HCPCS: 36415; 80053; 82140; 82962; 85027; 86780; 87811; C9803-CS; U0003; U0005